=== PATIENT | female | born 1975 | race Caucasian/White ===

== ENCOUNTER 2017-09-15 17:37 | Emergency (ER) | payer SELFPAY ==
[2017-09-15 19:15] VITALS: BP 154/97; PULSE 71; RESP 18; TEMP 36.4; O2SAT 100; BMI 27.3
--- NOTE | 2017-09-15 19:37 | HMH.EDUTC ---
[facility] Disposition Clinical Impression: Influenza-like illness, Exposure to influenza Disposition: Home, Self-Care Condition on Discharge: Good Instructions: DI for Influenza -- Adult Additional Instructions: * Discussed risks, side effects, risk of allergic reaction, and possible benefits. We even discussed hallucinations and uncontrollable fevers. * Lots of rest * Increase fluids, water, gatorade, powerade, pedialyte if /toddler/child * Monitor Temp. Tylenol every 4 hours as needed no more then 5 times a day or 4000mg in 24 hours and/or ibuprofen every 6 hours as needed no more then 3200mg in 24 hours (as long as your primary care doctor has told you that it is ok to take both) for fever/aches/pain. ER if fever no less than 101 despite tylenol and Ibuprofen * OTC cold/flu/sinus medication is ok but pick one. Do not take multiple different ones as they have similar ingredients and you can overdose on cold medication. * You (or your child) are contagious until no fever, aches, chills x 24 hours without medication for symptoms. * * Per hospital policy, Your throat swab was sent for culture. Those results are typically sent to your primary care. Be sure to follow up in 2-3 days if no improvement so they can review those results and treat if necessary. If you don't have primary care, I recommend you get one but in the mean time, you will have to return to a walk in clinic. Referrals: Erik Hook MD [Primary Care Provider] - (IMMEDIATELY for new or worsening symptoms, improvement followed by suddenly feeling worse OR no noticeable improvement over the next 48-72 hours. 911 for difficulty breathing ) Forms: Work/School Release Time of Disposition: 19:50 Medical Decision Making Vital Signs: 09/15/17 19:15 Temperature 97.5 F L Temperature Source Temporal Artery Scan Pulse Rate [Right Radial] 71 Respiratory Rate 18 Blood Pressure [Right Arm] 154/97 Blood Pressure Mean [Right Arm] 116 Blood Pressure Source [Right Arm] Automatic Cuff Blood Pressure Position [Right Arm] Sitting 02 Sat by Pulse Oximetry 100 Oxygen Delivery Method Room Air - Lab Data Lab results reviewed: Yes: I reviewed the patient's lab results. Lab Results 09/15/17 19:12: Influenza Type A Ag Negative, Influenza Type B Ag Negative, Strep Scn Rapid Clinic Negative Orders (Tests/Meds): ORDERS Category Date Time Status Strep Screen Confirmation Stat Micro 09/15/17 19:12 Received - Teo Inquiry Pt receiving controlled substance: No [facility] HPI - General Stated complaint: sore throat,body pain Time Seen by Provider: 09/15/17 19:38 Mode of Arrival: Ambulatory Source of Information: Patient Limitations: No Limitations Description of Symptoms (Recalled from Triage Doc. by RN): C/O sore throat body aches HEENT Symptoms (Recalled from RN notes): Yes (C/O sore throat) Resp Symptoms (Recalled from RN notes): No Skin Symptoms (Recalled from RN notes): No MS Symptoms (Recalled from RN notes): Yes (c/o body aches) Functional Status (Recalled from RN notes): n/a - History of Present Illness Provider Complaint: c/o sore throat starting late yesterday that has progressed and now feeling feverish, aches, chills, nonprod cough, sore throat, rhinorrhea. Slowly worsening as day as progressed. Multiple contacts with flu within the last week. None in home. Hasn't taken or tried anything for symptoms. - Related Data Home Medications Medication Instructions Recorded Confirmed Butalb/Acetaminophen/Caffeine 1 each PO Q6HP PRN 09/15/17 09/15/17 [Fioricet 50-300-40 mg Capsule] Levothyroxine Sodium 50 mcg PO DAILY 09/15/17 09/15/17 [Levothyroxine 50mcg (0.05mg) Tab] Spironolactone [Spironolactone 25 mg PO DAILY 09/15/17 09/15/17 25mg Tab] buPROPion HCl [Wellbutrin 75mg 75 mg PO DAILY 09/15/17 09/15/17 Tablet] Allergies Allergy/AdvReac Type Severity Reaction Status Date / Time codeine [CODEINE] Allergy Unknown VOMITING, Verifi
[2017-09-15 19:49] LABS: UTC Influenza A Antigen Negative (Negative); UTC Influenza B Antigen Negative (Negative); UTC Strep Screen (Rapid) Negative (Negative)
--- NOTE | 2017-09-15 19:49 | ED_ITS ---
[facility] [place] Clinical Impression: Influenza-like illness, Exposure to influenza Disposition: Home, Self-Care Condition on Discharge: Good Instructions: DI for Influenza -- Adult Additional Instructions: * Discussed risks, side effects, risk of allergic reaction, and possible benefits. We even discussed hallucinations and uncontrollable fevers. * Lots of rest * Increase fluids, water, gatorade, powerade, pedialyte if /toddler/child * Monitor Temp. Tylenol every 4 hours as needed no more then 5 times a day or 4000mg in 24 hours and/or ibuprofen every 6 hours as needed no more then 3200mg in 24 hours (as long as your primary care doctor has told you that it is ok to take both) for fever/aches/pain. ER if fever no less than 101 despite tylenol and Ibuprofen * OTC cold/flu/sinus medication is ok but pick one. Do not take multiple different ones as they have similar ingredients and you can overdose on cold medication. * You (or your child) are contagious until no fever, aches, chills x 24 hours without medication for symptoms. * * Per hospital policy, Your throat swab was sent for culture. Those results are typically sent to your primary care. Be sure to follow up in 2-3 days if no improvement so they can review those results and treat if necessary. If you don' t have primary care, I recommend you get one but in the mean time, you will have to return to a walk in clinic. Referrals: Erik Hook MD [Primary Care Provider] - (IMMEDIATELY for new or worsening symptoms, improvement followed by suddenly feeling worse OR no noticeable improvement over the next 48-72 hours. 911 for difficulty breathing ) Forms: Work/School Release Time of Disposition: 19:50 Medical Decision Making Vital Signs: 09/15/17 19:15 Temperature 97.5 F L Temperature Source Temporal Artery Scan Pulse Rate [Right Radial] 71 Respiratory Rate 18 Blood Pressure [Right Arm] 154/97 Blood Pressure Mean [Right Arm] 116 Blood Pressure Source [Right Arm] Automatic Cuff Blood Pressure Position [Right Arm] Sitting 02 Sat by Pulse Oximetry 100 Oxygen Delivery Method Room Air - Lab Data Lab results reviewed: Yes: I reviewed the patient's lab results. Lab Results 09/15/17 19:12: Influenza Type A Ag Negative, Influenza Type B Ag Negative, Strep Scn Rapid Clinic Negative Orders (Tests/Meds): ORDERS Category Date Time Status Strep Screen Confirmation Stat Micro 09/15/17 19:12 Received - Teo Inquiry Pt receiving controlled substance: No [facility] [place] - General Stated complaint: sore throat,body pain Time Seen by Provider: 09/15/17 19:38 Mode of Arrival: Ambulatory Source of Information: Patient Limitations: No Limitations Description of Symptoms (Recalled from Triage Doc. by RN): C/O sore throat body aches HEENT Symptoms (Recalled from RN notes): Yes (C/O sore throat) Resp Symptoms (Recalled from RN notes): No Skin Symptoms (Recalled from RN notes): No MS Symptoms (Recalled from RN notes): Yes (c/o body aches) Functional Status (Recalled from RN notes): n/a - History of Present Illness Provider Complaint: c/o sore throat starting late yesterday that has progressed and now feeling feverish, aches, chills, nonprod cough, sore throat, rhinorrhea. Slowly worsening as day as progressed. Multiple contacts with flu within the last week. None in home. Hasn't taken or tried anything for symptoms. - Related Data Home Medications Medication
[2017-09-15 19:51] VITALS: BP 132/67; PULSE 78; RESP 20; TEMP 36.7; O2SAT 99
== END 2017-09-15 19:52 | disposition home or self-care (01) ==
PROVIDERS: Emergency Provider Nurse Practitioner Family; PCP Emergency Medicine
DX: J10.1 Influenza due to other identified influenza virus with other respiratory manifestations (principal); G43.009 Migraine without aura, not intractable, without status migrainosus; F41.8 Other specified anxiety disorders; E03.9 Hypothyroidism, unspecified; Z90.49 Acquired absence of other specified parts of digestive tract; Z88.6 Allergy status to analgesic agent; Z88.2 Allergy status to sulfonamides
CPT/HCPCS: 87804; 87880; 99202

== ENCOUNTER 2017-09-22 06:30 | Emergency (ER) | payer SELFPAY ==
[2017-09-22 06:33] VITALS: BP 108/72; PULSE 95; RESP 16; TEMP 36.5; O2SAT 97; BMI 27.3
--- NOTE | 2017-09-22 07:13 | HMH.EDGENADL ---
ED Disposition Clinical Impression: Migraine Qualifiers: Migraine type: unspecified Status migrainosus presence: without status migrainosus Intractability: not intractable Qualified Code(s): G43.909 - Migraine, unspecified, not intractable, without status migrainosus Disposition: Home, Self-Care Condition on Discharge: Good Instructions: DI for Migraine Additional Instructions: Please follow-up with PCP if not better, within the next 1-2 days. Referrals: Erik Hook MD [Primary Care Provider] - Forms: Work/School Release Time of Disposition: 08:00 - Critical Care Critical Care Time: No Attestation: On 09/22/17, the high probability of a clinically significant, sudden or life threatening deterioration of the following system(s) required my full and direct attention, intervention and personal management. The time I documented below is in addition to time spent performing reported procedures but includes the following listed in this critical care notation. Medical Decision Making - Medical Records Medical records reviewed: Yes: I reviewed the patient's medical records. Vital Signs: 09/22/17 06:33 09/22/17 08:18 Temperature 97.7 F 97.9 F Temperature Source Oral Oral Pulse Rate 78 Pulse Rate [Right Brachial] 95 H Respiratory Rate 16 20 Blood Pressure 111/67 Blood Pressure [Right Arm] 108/72 Blood Pressure Mean [Right Arm] 84 Blood Pressure Source [Right Arm] Automatic Cuff Blood Pressure Position [Right Arm] Supine 02 Sat by Pulse Oximetry 97 Oxygen Delivery Method Room Air Room Air - Lab Data Lab results reviewed: Yes: I reviewed the patient's lab results. Lab Results 09/22/17 07:05: WBC 5.6, RBC 4.56, Hgb 13.5, Hct 39.9, MCV 87.5, MCH 29.7, MCHC 34.0, RDW 12.0, Plt Count 179, MPV 8.3, Neut % (Auto) 49.8, Lymph % (Auto) 38.7, [place] % (Auto) 5.0, Eos % (Auto) 5.5, Baso % (Auto) 0.9, Neut # (Auto) 2.8, Lymph # (Auto) 2.2, [place] # (Auto) 0.3, Eos # (Auto) 0.3, Baso # (Auto) 0.1 09/22/17 07:05: Sodium 138, Potassium 4.0, Chloride 105, Carbon Dioxide 30, Anion Gap 7.0, BUN 17, Creatinine 0.89, Estimated Creat Clear 87, Estimated GFR 70, Est GFR ( Amer) 85, Glucose 101, Calcium 8.7, Total Bilirubin 0.2, AST 7 L, ALT 28, Alkaline Phosphatase 71, Total Protein 7.0, Albumin 3.5, Globulin 3.5 H, Albumin/Globulin Ratio 1.0 L Result diagrams: 09/22/17 07:05 09/22/17 07:05 Orders (Tests/Meds): ED MEDICATIONS Discontinued Medications Generic Name Dose Route Start Last Admin Trade Name Freq PRN Reason Stop Dose Admin Diphenhydramine HCl 25 mg 09/22/17 07:07 09/22/17 07:11 Benadryl 50mg/1ml Vial IV 09/22/17 07:08 25 mg ONCE ONE Administration Sodium Chloride 1,000 mls @ 999 mls/hr 09/22/17 07:15 Sod Chlor 0.9% 1000ml Bag IV 09/22/17 08:15 .Q1H1M CHRISTEN Ketorolac Tromethamine 30 mg 09/22/17 07:07 09/22/17 07:11 Toradol 30mg/Ml Vial IV 09/22/17 07:08 30 mg ONCE ONE Administration Ondansetron HCl 4 mg 09/22/17 07:07 09/22/17 07:11 Zofran 4mg/2ml Vial IV 09/22/17 07:08 4 mg ONCE ONE Administration - Teo Inquiry Pt receiving controlled substance: No - Reevaluation(s) Time: 08:00 Reevaluation #1: Upon re-valuation the patient is medically stable, improving, advised to follow up with PCP per discharge instructions, for additional testing and workup. General Adult HPI - General Chief complaint: PAIN Stated complaint: MIGRAINE Mode of Arrival: Family Vehicle Limitations: No Limitations Description of Symptoms (Recalled from ER Triage Doc. by RN): C/O MIGRAINE HEADACHE WITH NAUSEA SINCE 4 AM - History of Present Illness complaint: headache and nasuea Onset (ago): hour(s) (3 hrs ago) Location: head Radiation: non-radiation Severity: similar to prior episodes Severity scale (1-10): 8 Quality: stabbing Consistency: constant Relieving factors: cold therapy Exacerbating factors: movement Associated symptoms: denies othe
--- NOTE | 2017-09-22 07:16 | ED_ITS ---
ED Disposition Clinical Impression: Migraine Qualifiers: Migraine type: unspecified Status migrainosus presence: without status migrainosus Intractability: not intractable Qualified Code(s): G43.909 - Migraine, unspecified, not intractable, without status migrainosus Disposition: Home, Self-Care Condition on Discharge: Good Instructions: DI for Migraine Additional Instructions: Please follow-up with PCP if not better, within the next 1-2 days. Referrals: Erik Hook MD [Primary Care Provider] - Forms: Work/School Release Time of Disposition: 08:00 - Critical Care Critical Care Time: No Attestation: On 09/22/17, the high probability of a clinically significant, sudden or life threatening deterioration of the following system(s) required my full and direct attention, intervention and personal management. The time I documented below is in addition to time spent performing reported procedures but includes the following listed in this critical care notation. Medical Decision Making - Medical Records Medical records reviewed: Yes: I reviewed the patient's medical records. Vital Signs: 09/22/17 06:33 09/22/17 08:18 Temperature 97.7 F 97.9 F Temperature Source Oral Oral Pulse Rate 78 Pulse Rate [Right Brachial] 95 H Respiratory Rate 16 20 Blood Pressure 111/67 Blood Pressure [Right Arm] 108/72 Blood Pressure Mean [Right Arm] 84 Blood Pressure Source [Right Arm] Automatic Cuff Blood Pressure Position [Right Arm] Supine 02 Sat by Pulse Oximetry 97 Oxygen Delivery Method Room Air Room Air - Lab Data Lab results reviewed: Yes: I reviewed the patient's lab results. Lab Results 09/22/17 07:05: WBC 5.6, RBC 4.56, Hgb 13.5, Hct 39.9, MCV 87.5, MCH 29.7, MCHC 34.0, RDW 12.0, Plt Count 179, MPV 8.3, Neut % (Auto) 49.8, Lymph % (Auto) 38.7 , [place] % (Auto) 5.0, Eos % (Auto) 5.5, Baso % (Auto) 0.9, Neut # (Auto) 2.8, Lymph # (Auto) 2.2, [place] # (Auto) 0.3, Eos # (Auto) 0.3, Baso # (Auto) 0.1 09/22/17 07:05: Sodium 138, Potassium 4.0, Chloride 105, Carbon Dioxide 30, Anion Gap 7.0, BUN 17, Creatinine 0.89, Estimated Creat Clear 87, Estimated GFR 70, Est GFR ( Amer) 85, Glucose 101, Calcium 8.7, Total Bilirubin 0.2, AST 7 L, ALT 28, Alkaline Phosphatase 71, Total Protein 7.0, Albumin 3.5, Globulin 3.5 H, Albumin/Globulin Ratio 1.0 L Result diagrams: 09/22/17 07:05 09/22/17 07:05 Orders (Tests/Meds): ED MEDICATIONS Discontinued Medications Generic Name Dose Route Start Last Admin Trade Name Freq PRN Reason Stop Dose Admin Diphenhydramine HCl 25 mg 09/22/17 07:07 09/22/17 07:11 Benadryl 50mg/1ml Vial IV 09/22/17 07:08 25 mg ONCE ONE Administration Sodium Chloride 1,000 mls @ 999 mls/hr 09/22/17 07:15 Sod Chlor 0.9% 1000ml Bag IV 09/22/17 08:15 .Q1H1M CHRISTEN Ketorolac Tromethamine 30 mg 09/22/17 07:07 09/22/17 07:11 Toradol 30mg/Ml Vial IV 09/22/17 07:08 30 mg ONCE ONE Administration Ondansetron HCl 4 mg 09/22/17 07:07 09/22/17 07:11 Zofran 4mg/2ml Vial IV 09/22/17 07:08 4 mg ONCE ONE Administration - Teo Inquiry Pt receiving controlled substance: No - Reevaluation(s) Time: 08:00 Reevaluation #1: Upon re-valuation the patient is medically stable, improving, advised to follow up with PCP per discharge instructi
[2017-09-22 07:19] LABS: Basophils # 0.1 K/mm3 (0-0.2); Basophils % 0.9 % (0.1-2.0); Eosinophils # 0.3 K/mm3 (0.0-0.4); Eosinophils % 5.5 % (0.1-12.0); Hematocrit 39.9 % (37.0-47.0); Hemoglobin 13.5 g/dL (12.2-16.2); Lymphocytes # 2.2 K/mm3 (0.7-4.5); Lymphocytes % 38.7 K/mm3 (10-50); Mean Corpuscular Hemoglobin 29.7 pg (27.0-31.2); Mean Corpuscular Volume 87.5 fl (81-99); Mean Platelet Volume 8.3 fl (7.4-10.4); Monocytes # 0.3 K/mm3 (0.1-1.0); Neutrophils # 2.8 K/mm3 (1.8-7.8); Neutrophils % 49.8 % (37.0-80.0); Platelet Count 179 K/mm3 (142-424); Red Blood Count 4.56 M/mm3 (4.20-5.40); White Blood Count 5.6 K/mm3 (4.8-10.8)
[2017-09-22 07:29] LABS: Alanine Aminotransferase 28 U/L (12-78); Albumin Level 3.5 gm/dL (3.4-5.0); Alkaline Phosphatase 71 U/L (46-116); Aspartate Amino Transferase 7 U/L (15-37); Bilirubin,Total 0.2 mg/dL (0.2-1.0); Blood Urea Nitrogen 17 mg/dL (7-18); Calcium 8.7 mg/dL (8.5-10.1); Carbon Dioxide 30 mmol/L (21.0-32.0); Chloride 105 mmol/L (98-107); Creatinine Clearance Estimated 87 mL/min (0-300); Creatinine,Serum 0.89 mg/dL (0.55-1.02); Estimated Glomerular Filt Rate 70 ml/min (>60); GFR (African American) 85 ML/MIN (>60); Globulin 3.5 gm/dl (1.3-3.2); Glucose 101 mg/dL (74-106); Sodium 138 mmol/L (136-145)
[2017-09-22 08:18] VITALS: BP 111/67; PULSE 78; RESP 20; TEMP 36.6; O2SAT 100
== END 2017-09-22 08:19 | disposition home or self-care (01) ==
PROVIDERS: Emergency Provider Emergency Medicine; PCP Emergency Medicine
DX: G43.909 Migraine, unspecified, not intractable, without status migrainosus (principal); F41.8 Other specified anxiety disorders; Z88.2 Allergy status to sulfonamides; Z88.6 Allergy status to analgesic agent; Z88.8 Allergy status to other drugs, medicaments and biological substances
CPT/HCPCS: 80053; 85025; 90471; 96365; 96374; 96375; 99282; J2405

== ENCOUNTER → 2018-07-03 08:14 | Outpatient (CLI) | payer OTHER, SELFPAY ==
[2018-07-03 08:36] LABS: Basophils # 0.1 K/mm3 (0-0.2); Basophils % 1.2 % (0.1-2.0); Eosinophils # 0.2 K/mm3 (0.0-0.4); Eosinophils % 3.8 % (0.1-12.0); Hematocrit 42.3 % (37.0-47.0); Hemoglobin 13.9 g/dL (12.2-16.2); Lymphocytes # 1.6 K/mm3 (0.7-4.5); Lymphocytes % 30.8 % (10-50); Mean Corpuscular HGB Conc 32.8 g/dL (31.8-35.4); Mean Corpuscular Volume 91.5 fl (81-99); Monocytes # 0.3 K/mm3 (0.1-1.0); Monocytes % 4.7 % (1.7-9.3); Neutrophils # 3.2 K/mm3 (1.8-7.8); Neutrophils % 59.5 % (37.0-80.0); Platelet Count 210 K/mm3 (142-424); Red Blood Count 4.62 M/mm3 (4.20-5.40); Red Cell Distribution Width 12.7 % (11.5-17.5); White Blood Count 5.3 K/mm3 (4.8-10.8)
[2018-07-03 09:40] LABS: Alanine Aminotransferase 19 U/L (12-78); Albumin Level 3.7 gm/dL (3.4-5.0); Albumin/Globulin Ratio 1.1 (1.1-1.8); Alkaline Phosphatase 71 U/L (46-116); Anion Gap 12.3 mEq/L (5-15); Aspartate Amino Transferase 7 U/L (15-37); Bilirubin,Total 0.2 mg/dL (0.2-1.0); Blood Urea Nitrogen 15 mg/dL (7-18); Calcium 8.7 mg/dL (8.5-10.1); Carbon Dioxide 28 mmol/L (21.0-32.0); Chloride 105 mmol/L (98-107); Chol/HDL Ratio 2.2 (1-3.5); Cholesterol 184 mg/dL (140-200); Creatinine,Serum 0.82 mg/dL (0.55-1.02); Estimated Glomerular Filt Rate 77 ml/min (>60); Free T4 (Free Thyroxine) 1.02 ng/dl (0.76-1.46); GFR (African American) 93 ML/MIN (>60); Globulin 3.3 gm/dl (1.3-3.2); Glucose 97 mg/dL (74-106); HDL Cholesterol 84 mg/dL (29-89); LDL Cholesterol 91 mg/dL (0-130); Potassium 4.3 mmoL/L (3.5-5.1); Sodium 141 mmol/L (136-145); Thyroid Stimulating Hormone 1.69 uIU/ml (0.358-3.740); Triglycerides 43 mg/dL (30-200); VLDL Cholesterol 9 mg/dL (0-40)
[2018-07-06 09:34] LABS: FSH 67.5 mIU/mL (.); LH 64.1 mIU/mL (.)
== END ==
PROVIDERS: Visit Provider Emergency Medicine
DX: E03.9 Hypothyroidism, unspecified (principal); E66.9 Obesity, unspecified; Z79.890 Hormone replacement therapy
CPT/HCPCS: 36415; 80053; 80061; 83001; 83002; 84146; 84439; 84443; 85025

== ENCOUNTER → 2018-09-02 07:42 | Outpatient (CLI) | payer OTHER, SELFPAY ==
[2018-09-03 13:36] LABS: Vitamin D 25 Hydroxy 30.1 ng/mL (30.0-100.0)
== END ==
PROVIDERS: Visit Provider Emergency Medicine
DX: Z13.21 Encounter for screening for nutritional disorder (principal)
CPT/HCPCS: 36415; 82652

== ENCOUNTER 2018-10-22 17:30 | Outpatient (RCR) | payer OTHER, SELFPAY ==
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
== END 2018-10-22 17:35 | disposition home or self-care (01) ==
LOC: PT 17:30
PROVIDERS: Visit Provider Specialist
DX: G43.809 Other migraine, not intractable, without status migrainosus (principal)
CPT/HCPCS: 97010; 97012; 97014; 97110; 97140; 97163; G0283

== ENCOUNTER → 2018-11-13 10:25 | Outpatient (CLI) | payer OTHER, SELFPAY ==
--- NOTE | 2018-11-13 10:28 | US_ITS ---
US thyroid HISTORY: Follow-up thyroid nodules ITS.REASON: THYROID NODULE ORDERING PHYSICIAN: Javi Mao MD PATIENT AGE: 43 years Comparison: None FINDINGS: The right lobe is 4.7 x 1.8 x 2 cm. There is a multinodular appearance on the right with heterogeneous echogenicity. No change in the 2.4 x 1.4 cm nodule in the mid polar region on the right. The left lobe is 4.3 x 1.4 x 1.3 cm with heterogeneous echogenicity with a 1.1 cm nodule in the mid polar region unchanged. IMPRESSION: Overall no change in the heterogeneous echogenicity thyroid gland with multinodular involvement
== END ==
PROVIDERS: PCP Emergency Medicine; Visit Provider Otolaryngology
DX: E04.1 Nontoxic single thyroid nodule (principal)
CPT/HCPCS: 76536

== ENCOUNTER → 2018-11-16 07:24 | Outpatient (CLI) | payer OTHER, SELFPAY ==
[2018-11-16 09:06] LABS: Free T4 (Free Thyroxine) 1.07 ng/dl (0.76-1.46); Thyroid Stimulating Hormone 2.31 uIU/ml (0.358-3.740)
[2018-11-18 06:56] LABS: Thyroglobulin Level <1.0 IU/mL (0.0-0.9); Thyroid Peroxidase Antibodies 125 IU/mL (0-34)
== END ==
PROVIDERS: Visit Provider Otolaryngology
DX: E04.1 Nontoxic single thyroid nodule (principal)
CPT/HCPCS: 36415; 84439; 84443; 86376; 86800

== ENCOUNTER → 2019-05-11 14:53 | Outpatient (CLI) | payer OTHER, SELFPAY | PROVIDERS: Visit Provider Obstetrics & Gynecology | DX: R39.89 Other symptoms and signs involving the genitourinary system (principal) | CPT/HCPCS: 87086 ==

== ENCOUNTER → 2019-05-13 16:04 | Outpatient (CLI) | payer OTHER, SELFPAY ==
[2019-05-13 16:09] LABS: Microscopic, Urine URINE MICROSCOPIC (MICROSCOPIC)
[2019-05-13 16:33] LABS: Appearance,Urine CLEAR (Clear); Bilirubin,Urine Negative (Negative); Blood, Urine Negative (Negative); Color,Urine YELLOW (Yellow); Glucose,Urine (UA) Negative (Negative); Ketones,Urine Negative (Negative); Leukocyte Esterase,Urine Negative (Negative); Nitrate,Urine Negative (Negative); Protein,Urine Negative (Negative); Specific Gravity, Urine 1.015 (1.005-1.030); Urobilinogen,Urine 0.2 EU/dl (0.2)
[2019-05-13 17:07] LABS: Bacteria,Urine Trace /lpf; Squamous Epithelial Cell,Urine Occasional #/hpf (0-5); WBC,Urine Occasional #/hpf (0-3)
== END ==
PROVIDERS: Visit Provider Nurse Practitioner
DX: N39.0 Urinary tract infection, site not specified (principal)
CPT/HCPCS: 81001; 87086

== ENCOUNTER → 2019-07-06 10:58 | Outpatient (POV) | payer OTHER, SELFPAY | PROVIDERS: Visit Provider Dermatology | DX: Z00.00 Encounter for general adult medical examination without abnormal findings (principal) ==

== ENCOUNTER → 2019-07-13 10:50 | Outpatient (CLI) | payer OTHER, SELFPAY ==
--- NOTE | 2019-07-13 10:52 | MM_ITS ---
PROCEDURE: MM DIG SCREENING MAMM BI W/CAD CLINICAL INDICATION: Routine Screening Mammogram There is no personal or family history of breast cancer COMPARISON: None, this is baseline examination TECHNIQUE: Standard CC and MLO images were obtained. R2 CAD reviewed. FINDINGS: Moderate diffuse fibroglandular densities are seen in both breast and the findings of bilateral and symmetrical. There are scattered microcalcifications in each breast most of which have primarily a benign appearance. However there is a collection microcalcifications just deep to the nipple left breast which appear somewhat indeterminate. Recommend the patient return for spot compression magnification views for better evaluation. IMPRESSION: Moderate diffuse breast density with somewhat indeterminate microcalcifications left breast BI-RAD Category: 0 Need Additional Imaging Evaluation FOLLOW-UP: IMM Immediate Follow-up Recommended (A letter has been sent to the patient regarding results of the study.) Dictated by: Dr. Jeevan Ramirez MD 07/18/2019 12:[address] Jeevan Ramirez MD in [place] 07/18/2019 12:44
== END ==
PROVIDERS: PCP Emergency Medicine; Visit Provider Obstetrics & Gynecology
DX: Z12.31 Encounter for screening mammogram for malignant neoplasm of breast (principal)
CPT/HCPCS: 77067

== ENCOUNTER → 2019-08-16 13:02 | Outpatient (CLI) | payer OTHER, SELFPAY ==
--- NOTE | 2019-08-16 13:04 | US_ITS ---
PROCEDURE: US THYROID CLINICAL INDICATION: hypothyroid Follow-up thyroid nodules COMPARISON: THY US thyroid from 11/13/2018 FINDINGS: Right lobe: 4.5 x 1.7 x 1.8 cm. 2.1 x 0.7 cm nodule upper pole right thyroid gland heterogeneous in nature mostly hypoechoic solid-appearing. Hyperechoic nodule with calcification mid polar region at 4 mm unchanged, 9 mm hypoechoic solid-appearing nodule heterogeneous lower pole unchanged Left lobe: 3.8 x 1.3 x 1.2 cm. 11 x 6 mm hypoechoic nodule mid pole unchanged The thyroid gland has nodular contour bilaterally. Isthmus: Additional findings: IMPRESSION: Overall no change multinodular goiter Dictated by: Pedrito Oneill MD 08/17/2019 06:54 Electronically signed by Pedrito Oneill MD in [place] 08/17/2019 06:54
== END ==
PROVIDERS: PCP Emergency Medicine; Visit Provider Otolaryngology
DX: E01.0 Iodine-deficiency related diffuse (endemic) goiter (principal)
CPT/HCPCS: 76536

== ENCOUNTER → 2019-08-31 10:18 | Outpatient (CLI) | payer OTHER, SELFPAY ==
--- NOTE | 2019-08-31 10:18 | MR_ITS ---
PROCEDURE: MR HEAD/BRAIN WO/W CON CLINICAL INDICATION: temporal bones- r/o aciustic neuroma Headache, short-term memory loss, dizziness and blurred vision, right-sided tinnitus COMPARISON: BRW/O MRI-BRAIN W/O from 02/27/2017 TECHNIQUE: Routine multiplanar multi echo sequences are performed without and with gadolinium enhancement. FINDINGS: No midline shift, mass effect, intracranial hemorrhage, or hydrocephalus is evident. No acute infarction. The cerebellopontine angles, cerebellum, and brainstem have an unremarkable appearance. No evidence CP angle mass. There is a partial empty sella as a normal variant not significantly changed. Thin section images are obtained without and with contrast through the CP angle showing no CP angle mass or abnormal enhancement. No temporal bone mass evident. There is small amount fluid in the left mastoid sinus. Mucosal thickening is present in the right maxillary sinus inferiorly with a retention cyst in the medial wall the right maxillary sinus at 11 mm. IMPRESSION: 1. No acute intracranial findings. No evidence of cerebellopontine angle mass. 2. Partial empty sella. 3. Small amount of fluid in left mastoid sinus Dictated by: Pedrito Oneill MD 09/01/2019 09:10 Electronically signed by Pedrito Oneill MD in [place] 09/01/2019 09:10
--- NOTE | 2019-08-31 11:16 | HMH.ITSHM ---
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 []XANEX BUPROPION HCL ZYRTEC ESTRADIOL FLONASE SUNTHROID OMEPRAZOLE
== END ==
PROVIDERS: PCP Emergency Medicine; Visit Provider Otolaryngology
DX: R42 Dizziness and giddiness (principal); D33.3 Benign neoplasm of cranial nerves; H90.5 Unspecified sensorineural hearing loss; H93.11 Tinnitus, right ear
CPT/HCPCS: 70553; A9576

== ENCOUNTER → 2019-09-14 16:13 | Outpatient (CLI) | payer OTHER, SELFPAY ==
--- NOTE | 2019-09-14 16:14 | MM_ITS ---
PROCEDURE: MM DIG MAMM DX UNILAT LT CAD CLINICAL INDICATION: Dx Bilateral Mammogram Follow-up abnormal mammogram COMPARISON: MM DIG SCREENING MAMM BI W/CAD from 07/13/2019 TECHNIQUE: Spot compression Mag views of the left breast FINDINGS: Spot compression Mag views of the left breast confirm cluster of calcifications in the superior left breast near the retroareolar region. Most of these calcifications are somewhat smudgy on the CC view and appear to video player mechanic on the straight mL view consistent with milk of calcium. A few however do not video player mechanic therefore, follow-up is recommended. Probable secretory calcifications also noted. IMPRESSION: BI-RAD Category: 3 Probably Benign Finding Short Term Follow-up FOLLOW-UP: 6M 6Month Follow-up (A letter has been sent to the patient regarding results of the study.) Dictated by: Pedrito Oneill MD 09/18/2019 10:13 Electronically signed by Pedrito Oneill MD in [place] 09/18/2019 10:13
== END ==
PROVIDERS: PCP Emergency Medicine; Visit Provider Obstetrics & Gynecology
DX: R92.8 Other abnormal and inconclusive findings on diagnostic imaging of breast (principal)
CPT/HCPCS: 77061; 77065; G0279

== ENCOUNTER → 2019-10-04 08:18 | Outpatient (CLI) | payer OTHER, SELFPAY ==
[2019-10-04 10:23] LABS: Thyroid Stimulating Hormone 4.11 uIU/mL (0.465-4.68)
[2019-10-05 13:10] LABS: Folate 8.7 ng/mL (>3.0); Vitamin B12 528 pg/mL (232-1245)
== END ==
PROVIDERS: Visit Provider Specialist
DX: G43.919 Migraine, unspecified, intractable, without status migrainosus (principal); G89.29 Other chronic pain; M54.2 Cervicalgia; R41.3 Other amnesia; R51 Headache; E03.9 Hypothyroidism, unspecified; R53.83 Other fatigue
CPT/HCPCS: 36415; 82607; 82746; 84443

== ENCOUNTER → 2020-01-21 08:56 | Outpatient (CLI) | payer OTHER, SELFPAY ==
[2020-01-21 10:29] LABS: Coronavirus 19 IgG Antibody Negative (Negative); Coronavirus 19 IgM Antibody Negative (Negative)
== END ==
PROVIDERS: Visit Provider Emergency Medicine
DX: Z03.818 Encounter for observation for suspected exposure to other biological agents ruled out (principal)
CPT/HCPCS: 36415; 86328

== ENCOUNTER 2020-02-20 18:32 | Emergency (ER) | payer OTHER, SELFPAY ==
[2020-02-20 18:51] VITALS: BP 142/94; PULSE 99; RESP 18; TEMP 36.7; O2SAT 99; BMI 26.9
[2020-02-20 19:03] LABS: UTC Strep Screen (Rapid) Negative (Negative)
--- NOTE | 2020-02-20 19:18 | HMH.EDUTC ---
[facility] [place]ression: Sinusitis Qualifiers: Sinusitis location: unspecified location Chronicity: acute Recurrence: non-recurrent Qualified Code(s): J01.90 - Acute sinusitis, unspecified Disposition: Home, Self-Care Condition on Discharge: Good Instructions: Sinusitis, DI for Sinusitis, Preventing the Spread of Coronavirus Discharge Instructions Additional Instructions: Drink plenty of fluids. Take tylenol or ibuprofen for pain or fever. Take the medications as directed. Follow up with your regular doctor. GO TO THE ER FOR ANY WORSENING SYMPTOMS FOLLOW THE DIRECTIONS ON THE COVID-19 HAND OUT THAT WE GAVE YOU REGARDING SELF-ISOLATION UNTIL YOU KNOW YOUR COVID-19 RESULTS Prescriptions: Azithromycin [Z-Dante 250mg Tab*] 250 mg PO UD DOSE PK #6 tab Transmission Status: Received by [facility] Resident Research Referrals: Erik Hook MD [Primary Care Provider] - Forms: Work/School Release Time of Disposition: 19:23 Medical Decision Making - Medical Records Medical records reviewed: No: I reviewed the patient's medical records. - Teo Inquiry Pt receiving controlled substance: No Vital Signs: 02/20/20 18:51 02/20/20 19:25 Temperature 98.0 F 98.0 F Temperature Source Oral Pulse Rate 99 H Pulse Rate [Left Brachial] 99 H Respiratory Rate 18 18 Blood Pressure 142/94 H Blood Pressure [Left Arm] 142/94 H Blood Pressure Mean [Left Arm] 110 Blood Pressure Source [Left Arm] Automatic Cuff Blood Pressure Position [Left Arm] Sitting 02 Sat by Pulse Oximetry 99 Oxygen Delivery Method Room Air - Lab Data Lab results reviewed: Yes: I reviewed the patient's lab results. Lab Results 02/20/20 18:56: Strep Scn Rapid Clinic Negative Orders (Tests/Meds): ED MEDICATIONS Discontinued Medications Generic Name Dose Route Start Last Admin Trade Name Freq PRN Reason Stop Dose Admin Azithromycin 500 mg 02/20/20 19:20 02/20/20 19:24 Zithromax 250mg Tablet PO 02/20/20 19:21 500 mg ONCE ONE Administration Protocol ORDERS Category Date Time Status SARS-CoV-2, CORONA Stat Lab 02/20/20 19:15 Received Strep Screen Confirmation Stat Micro 02/20/20 18:56 [place] [facility] [place] - General Stated complaint: sore throat, cough Time Seen by Provider: 02/20/20 19:00 Mode of Arrival: Ambulatory Source of Information: Patient Limitations: No Limitations Description of Symptoms (Recalled from Triage Doc. by RN): PATIENT C/O SORE THROAT, BLISTERS ON TONGUE, AND PRODUCTIVE COUGH SINCE FRIDAY NIGHT. REPORTS THAT SHE IS ON DAY 2 OF STEROID PACK. DENIES FEVER OR ANY SICK CONTACTS HEENT Symptoms (Recalled from RN notes): Yes Resp Symptoms (Recalled from RN notes): Yes Skin Symptoms (Recalled from RN notes): No MS Symptoms (Recalled from RN notes): No Functional Status (Recalled from RN notes): WNL - History of Present Illness Provider Complaint: She c/o 2 days of worsening sore throat. She has also had a dry cough. - Related Data Home Medications Medication Instructions Recorded Confirmed omeprazole 20 mg capsule,delayed 20 mg PO 30 Days cap 09/14/18 10/05/19 release Previous Rx's Medication Instructions Recorded estradiol 2 mg tablet 2 mg PO DAILY #90 tab 04/23/19 ibuprofen 800 mg tablet 800 mg PO BID PRN #60 tab 09/09/19 erenumab-aooe 70 mg/mL 70 mg SQ QMONTH #1 each 09/20/19 subcutaneous auto-injector alprazolam 0.5 mg tablet 0.5 mg PO BID #60 tab 09/21/19 hydrocodone 5 mg-acetaminophen 325 1 tab PO BID PRN #20 tab 09/21/19 mg tablet ubrogepant 50 mg tablet 50 mg PO .COMPLEX #10 tab 10/05/19 cetirizine 10 mg tablet 10 mg PO DAILY #30 tab 11/30/19 Synthroid 50 mcg tablet See Rx Instructions .ROUTE 01/03/20 .COMPLEX #90 tab NS bupropion HCl 300 mg 24 hr tablet, See Rx Instructions .ROUTE 01/03/20 extended release .COMPLEX #90 tab fluticasone propionate 50 1 spray INTRANASAL DAILY #1 device 01/03/20 mcg/actuation nasal spray,suspensi
[2020-02-20 19:25] VITALS: BP 142/94; PULSE 99; RESP 18; TEMP 36.7; O2SAT 99
[2020-02-22 15:21] LABS: Covid-19 Nasal PCR Sendout Lex NOT DETECTED
== END 2020-02-20 19:30 | disposition home or self-care (01) ==
PROVIDERS: Emergency Provider Nurse Practitioner Family; PCP Emergency Medicine
DX: J01.90 Acute sinusitis, unspecified (principal); F41.8 Other specified anxiety disorders; G43.709 Chronic migraine without aura, not intractable, without status migrainosus; E03.9 Hypothyroidism, unspecified; Z90.49 Acquired absence of other specified parts of digestive tract; Z88.2 Allergy status to sulfonamides; Z88.5 Allergy status to narcotic agent; K21.9 Gastro-esophageal reflux disease without esophagitis; Z79.899 Other long term (current) drug therapy
CPT/HCPCS: 87880; 99202; U0004

== ENCOUNTER 2020-02-23 18:07 | Emergency (ER) | payer OTHER, SELFPAY ==
[2020-02-23 18:26] VITALS: RESP 16; TEMP 36.9; O2SAT 99; BMI 26.4
[2020-02-23 18:28] LABS: Microscopic, Urine URINE MICROSCOPIC (MICROSCOPIC)
[2020-02-23 18:38] LABS: Appearance,Urine CLEAR (Clear); Bilirubin,Urine Negative (Negative); Blood, Urine Negative (Negative); Color,Urine YELLOW (Yellow); Glucose,Urine (UA) Negative (Negative); Ketones,Urine Negative (Negative); Leukocyte Esterase,Urine Negative (Negative); Nitrate,Urine Negative (Negative); PH,Urine 5.5 (5.0-8.5); Protein,Urine Negative (Negative); Specific Gravity, Urine >= 1.030 (1.005-1.030); Urobilinogen,Urine 0.2 EU/dl (0.2)
[2020-02-23 18:46] LABS: Basophils # 0.1 K/mm3 (0-0.2); Basophils % 0.6 % (0.1-2.0); Eosinophils # 0.1 K/mm3 (0.0-0.4); Eosinophils % 1.2 % (0.1-12.0); Hematocrit 42.2 % (37.0-47.0); Hemoglobin 13.7 g/dL (12.2-16.2); Lymphocytes # 1.3 K/mm3 (0.7-4.5); Lymphocytes % 12.1 % (10-50); Mean Corpuscular HGB Conc 32.6 g/dL (31.8-35.4); Mean Corpuscular Hemoglobin 28.3 pg (27.0-31.2); Mean Corpuscular Volume 86.8 fl (81-99); Mean Platelet Volume 8.2 fl (7.4-10.4); Monocytes # 0.3 K/mm3 (0.1-1.0); Monocytes % 2.3 % (1.7-9.3); Neutrophils % 83.9 % (37.0-80.0); Platelet Count 222 K/mm3 (142-424); Red Blood Count 4.86 M/mm3 (4.20-5.40); Red Cell Distribution Width 13.7 % (11.5-17.5); White Blood Count 10.8 K/mm3 (4.8-10.8)
[2020-02-23 19:01] LABS: Chloride 101 mmol/L (98-107); Potassium 3.7 mmoL/L (3.5-5.1); Sodium 140 mmol/L (136-145)
[2020-02-23 19:03] LABS: Amylase 230 U/L (30-110); Blood Urea Nitrogen 18 mg/dl (7-17); Creatinine Clearance Estimated 73 mL/min (50-200); Estimated Glomerular Filt Rate 61 ml/min (>60); GFR (African American) 74 ML/MIN (>60)
[2020-02-23 19:04] LABS: Alanine Aminotransferase 17 U/L (12-78); Albumin Level 4.3 g/dl (3.5-5.0); Albumin/Globulin Ratio 1.4 (1.1-1.8); Alkaline Phosphatase 78 U/L (38-126); Anion Gap 13.7 mEq/L (5-15); Aspartate Amino Transferase 21 U/L (14-36); Bilirubin,Total 0.3 mg/dl (0.2-1.3); Calcium 9.1 mg/dl (8.4-10.2); Carbon Dioxide 29 mmol/L (22.0-30.0); Glucose 136 mg/dl (74-100); Lipase 483 U/L (23-300); Total Protein,Serum 7.3 g/dl (6.3-8.2)
[2020-02-23 19:15] LABS: Bacteria,Urine 2+ /lpf
--- NOTE | 2020-02-23 19:34 | CT_ITS ---
PROCEDURE: CT ABDOMEN PELVIS W CON CLINICAL INDICATION: abd pain with n/v/d Abdominal pain with nausea and vomiting COMPARISON: No exams were available for comparison TECHNIQUE: IV Contrast: 75ML OPTIRAY 350 Oral Contrast None Axial images obtained with sagittal and coronal reformats. All CT scans at the facility use one or more dose reduction, viz: automated exposure control, ma/kV adjustment per patient size (including targeted exams where dose is matched to indication, i.e. head), or iterative reconstruction technique. FINDINGS: LOWER THORAX: No acute finding ABDOMEN & PELVIS: There are scattered hypoattenuating slightly complex nodules in the liver measuring up to 1.2 cm. Some of these lesions appear to show some peripheral enhancement. These may be due to combination of the hemangiomas and cysts. Cannot exclude the possibility of metastatic disease. The spleen, adrenal glands, pancreas, has an unremarkable appearance. No renal or ureteral calculi. There is minimal prominence of both renal pelves. No intestinal obstruction or free air. There is mild diffuse thickening of the colon throughout suggesting colitis. No evidence of appendicitis or diverticulitis. The appendix is not clearly visualized. There are post hysterectomy changes. No pelvic mass or abnormal fluid collection. No acute bony anomaly. IMPRESSION: 1. Mild large bowel wall thickening which may represent nondistention versus mild diffuse colitis. 2. Multiple hypoattenuating lesions of the liver which may be due to combination of cysts and hemangiomas. Suggest follow-up CT without and with contrast with hemangioma protocol Dictated by: Pedrito Oneill MD 02/24/2020 09:35 Electronically signed by Pedrito Oneill MD in [place] 02/24/2020 09:35
[2020-02-23 20:00] VITALS: BP 130/84; PULSE 86; RESP 18; O2SAT 99
--- NOTE | 2020-02-23 20:15 | HMH.EDNVD ---
ED Disposition Clinical Impression: Gastroenteritis Pancreatitis, acute Qualifiers: Pancreatitis type: other Acute pancreatitis complication: no infection or necrosis Qualified Code(s): K85.80 - Other acute pancreatitis without necrosis or infection Disposition: Home, Self-Care Condition on Discharge: Good Instructions: DI for Diarrhea and Traveler's Diarrhea -- Adult Additional Instructions: fluids and see pcp for follow up Referrals: Erik Hook MD [Primary Care Provider] - - Critical Care Critical Care Time: No Attestation: On 02/23/20, the high probability of a clinically significant, sudden or life threatening deterioration of the following system(s) required my full and direct attention, intervention and personal management. The time I documented below is in addition to time spent performing reported procedures but includes the following listed in this critical care notation. Medical Decision Making - Medical Records Medical records reviewed: Yes: I reviewed the patient's medical records. - Teo Inquiry Pt receiving controlled substance: No Vital Signs: 02/23/20 18:26 02/23/20 20:00 Temperature 98.4 F Temperature Source Temporal Artery Scan Pulse Rate [Right Radial] 86 Respiratory Rate 16 18 Blood Pressure [Left Arm] 130/84 Blood Pressure Mean [Left Arm] 99 Blood Pressure Source [Left Arm] Automatic Cuff Blood Pressure Position [Left Arm] Supine 02 Sat by Pulse Oximetry 99 99 Oxygen Delivery Method Room Air Room Air - Lab Data Lab results reviewed: Yes: I reviewed the patient's lab results. Lab Results 02/23/20 18:16: Urine Color Yellow, Urine Appearance Clear, Urine pH 5.5, Ur Specific [place] >= 1.030, Urine Protein Negative, Urine Glucose (UA) Negative, Urine Ketones Negative, Urine Blood Negative, Urine Nitrate Negative, Urine Bilirubin Negative, Urine Urobilinogen 0.2, Ur Leukocyte Esterase Negative, Urine RBC None, Urine WBC 10-20, Ur Squamous Epith Cells 3-5, Urine Bacteria 2+ 02/23/20 18:39: WBC 10.8, RBC 4.86, Hgb 13.7, Hct 42.2, MCV 86.8, MCH 28.3, MCHC 32.6, RDW 13.7, Plt Count 222, MPV 8.2, Neut % (Auto) 83.9 H, Lymph % (Auto) 12.1, [place] % (Auto) 2.3, Eos % (Auto) 1.2, Baso % (Auto) 0.6, Neut # (Auto) 9.0 H, Lymph # (Auto) 1.3, [place] # (Auto) 0.3, Eos # (Auto) 0.1, Baso # (Auto) 0.1 02/23/20 18:39: Sodium 140, Potassium 3.7, Chloride 101, Carbon Dioxide 29, Anion Gap 13.7, BUN 18 H, Creatinine 1.00, Estimated Creat Clear 73, Estimated GFR 61, Est GFR ( Amer) 74, Glucose 136 H, Calcium 9.1, Total Bilirubin 0.3, AST 21, ALT 17, Alkaline Phosphatase 78, Total Protein 7.3, Albumin 4.3, Globulin 3.0, Albumin/Globulin Ratio 1.4, Amylase 230 H, Lipase 483 H Result diagrams: 02/23/20 18:39 02/23/20 18:39 Orders (Tests/Meds): ED MEDICATIONS Generic Name Dose Route Start Last Admin Trade Name Freq PRN Reason Stop Dose Admin Sodium Chloride 1,000 mls @ 999 mls/hr 02/23/20 18:45 02/23/20 18:38 Sod Chlor 0.9% 1000ml Bag IV 02/23/20 19:45 999 mls/hr .Q1H1M CHRISTEN Administration Sodium Chloride 1,000 mls @ 999 mls/hr 02/23/20 20:30 02/23/20 20:24 Sod Chlor 0.9% 1000ml Bag IV 02/23/20 21:30 999 mls/hr .Q1H1M CHRISTEN Administration Discontinued Medications Generic Name Dose Route Start Last Admin Trade Name Freq PRN Reason Stop Dose Admin Ioversol 75 ml 02/23/20 19:59 02/23/20 20:00 Rad-Optiray 350 100ml Vial IV 02/23/20 20:00 75 ml ONCE ONE Administration Protocol Ondansetron HCl 4 mg 02/23/20 18:33 02/23/20 18:39 Zofran 4mg/2ml Vial IV 02/23/20 18:34 4 mg ONCE ONE Administration Promethazine HCl 12.5 mg 02/23/20 20:20 02/23/20 20:24 Phenergan 25mg/Ml 1ml Vial IV 02/23/20 20:21 12.5 mg ONCE ONE Administration Sodium Chloride 10 ml 02/23/20 19:59 02/23/20 20:00 Rad-Saline Flush 10ml Syringe IV 02/23/20 20:00 10 ml ONCE ONE Administration Sodium Chloride 25 ml 02/23/20 20:20 02/23/20 20:24
[2020-02-23 20:30] VITALS: BP 124/80; PULSE 81; RESP 18; O2SAT 100
[2020-02-23 21:37] VITALS: BP 127/79; PULSE 83; RESP 16; TEMP 36.9; O2SAT 98
== END 2020-02-23 21:40 | disposition home or self-care (01) ==
PROVIDERS: Emergency Provider Emergency Medicine; PCP Emergency Medicine
DX: K85.80 Other acute pancreatitis without necrosis or infection (principal); K52.9 Noninfective gastroenteritis and colitis, unspecified; E03.9 Hypothyroidism, unspecified; F41.8 Other specified anxiety disorders; Z88.2 Allergy status to sulfonamides; Z88.5 Allergy status to narcotic agent; Z90.49 Acquired absence of other specified parts of digestive tract; Z90.79 Acquired absence of other genital organ(s); Z79.899 Other long term (current) drug therapy
CPT/HCPCS: 74177; 80053; 81001; 82150; 83690; 85025; 87086; 96365; 96366; 96375; 99284; J2405; Q9967

== ENCOUNTER → 2020-03-13 14:30 | Outpatient (CLI) | payer OTHER, SELFPAY ==
--- NOTE | 2020-03-13 14:31 | US_ITS ---
PROCEDURE: MM DIG MAMM DX UNILAT LT CAD Digital Breast Tomosynthesis Included CLINICAL INDICATION: abnormal mamm COMPARISON: MG MM DIG SCREENING MAMM BI W/CAD from 07/13/2019 MG MM DIG MAMM DX UNILAT LT CAD from 09/14/2019 US US BREAST LT COMPLETE from 03/13/2020 TECHNIQUE: Images performed of the left breast along with left breast ultrasound and Mag views FINDINGS: Left mammogram: Average to dense fibroglandular tissue. 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 A small cluster of calcifications noted in the inferior aspect of the left breast some of which appear to contain central lucencies and are not significantly changed. No suspicious appearing calcifications evident.. On the CC view the axillary tail is not imaged. Left breast ultrasound: 5 mm cyst at 1 o'clock. This may be associated with a calcification. No suspicious nodules evident. IMPRESSION: Probably benign findings which do not appear significantly changed. Recommend bilateral mammogram follow-up with inclusion of exaggerated CC views to include axillary tail in July 2020 to put patient back on schedule BI-RAD Category: 3 Probably Benign Finding Short Term Follow-up FOLLOW-UP: 4 month follow-up bilaterally to put patient back on schedule (A letter has been sent to the patient regarding results of the study.) Dictated by: Pedrito Oneill MD 03/17/2020 12:47 Pedrito Oneill MD in [place] 03/17/2020 12:47
== END ==
PROVIDERS: PCP Emergency Medicine; Visit Provider Obstetrics & Gynecology
DX: R92.8 Other abnormal and inconclusive findings on diagnostic imaging of breast (principal)
CPT/HCPCS: 76641; 77061; 77065; G0279

== ENCOUNTER 2020-04-05 12:26 | Emergency (ER) | payer OTHER, SELFPAY ==
[2020-04-05 12:28] VITALS: BP 128/80; PULSE 97; RESP 19; TEMP 36.5; O2SAT 99; BMI 26.5
[2020-04-05 13:04] VITALS: BP 116/69; PULSE 75; O2SAT 100
[2020-04-05 13:25] LABS: Basophils # 0.1 K/mm3 (0-0.2); Basophils % 1.1 % (0.1-2.0); Eosinophils # 0.2 K/mm3 (0.0-0.4); Eosinophils % 3.4 % (0.1-12.0); Hematocrit 40.5 % (37.0-47.0); Hemoglobin 13.8 g/dL (12.2-16.2); Lymphocytes # 1.6 K/mm3 (0.7-4.5); Lymphocytes % 25.2 % (10-50); Mean Corpuscular Hemoglobin 28.8 pg (27.0-31.2); Mean Corpuscular Volume 84.8 fl (81-99); Mean Platelet Volume 8.2 fl (7.4-10.4); Monocytes # 0.4 K/mm3 (0.1-1.0); Monocytes % 5.7 % (1.7-9.3); Neutrophils % 64.7 % (37.0-80.0); Platelet Count 230 K/mm3 (142-424); Red Blood Count 4.77 M/mm3 (4.20-5.40); Red Cell Distribution Width 13.2 % (11.5-17.5); White Blood Count 6.2 K/mm3 (4.8-10.8)
[2020-04-05 13:29] LABS: Amylase 103 U/L (30-110)
[2020-04-05 13:30] LABS: Alanine Aminotransferase 16 U/L (12-78); Albumin Level 4.5 g/dl (3.5-5.0); Albumin/Globulin Ratio 1.3 (1.1-1.8); Alkaline Phosphatase 100 U/L (38-126); Anion Gap 13.9 mEq/L (5-15); Aspartate Amino Transferase 41 U/L (14-36); Bilirubin,Total 0.5 mg/dl (0.2-1.3); Blood Urea Nitrogen 11 mg/dl (7-17); Calcium 9.7 mg/dl (8.4-10.2); Carbon Dioxide 30 mmol/L (22.0-30.0); Chloride 100 mmol/L (98-107); Creatinine Clearance Estimated 76 mL/min (50-200); Estimated Glomerular Filt Rate 61 ml/min (>60); GFR (African American) 74 ML/MIN (>60); Globulin 3.6 g/dL (1.3-3.2); Glucose 103 mg/dl (74-100); Lipase 67 U/L (23-300); Potassium 3.9 mmoL/L (3.5-5.1); Sodium 140 mmol/L (136-145); Total Protein,Serum 8.1 g/dl (6.3-8.2)
--- NOTE | 2020-04-05 13:52 | HMH.EDGENADL ---
ED Disposition Clinical Impression: Malaise, Atypical chest pain Headache Qualifiers: Headache type: unspecified Headache chronicity pattern: acute headache Intractability: intractable Qualified Code(s): R51 - Headache Disposition: Home, Self-Care Condition on Discharge: Good Instructions: DI for Atypical Chest Pain, DI for Headache Additional Instructions: Off work and quarantine yourself for 2 days until COVID-19 test results known. Call back to the emergency department in 2 days for COVID-19 test results. Rest, plenty of fluids, [id number] medications as needed for symptoms. Additional instructions for CHEST PAIN: See your physician as soon as possible for further evaluation. Return immediately if worsening chest pain, vomiting, shortness of breath, fever, coughing of blood. Additional instructions for HEADACHE: See your physician as soon as possible for further evaluation. Return immediately if worsening headache, vomiting, problems with vision or speech, fever, numbness or weakness of the extremities, neck pain or stiffness. Referrals: Erik Hook MD [Primary Care Provider] - Forms: Work/School Release - Critical Care Critical Care Time: No Attestation: On 04/05/20, the high probability of a clinically significant, sudden or life threatening deterioration of the following system(s) required my full and direct attention, intervention and personal management. The time I documented below is in addition to time spent performing reported procedures but includes the following listed in this critical care notation. Medical Decision Making - Medical Records Medical records reviewed: Yes: I reviewed the patient's medical records. - Teo Inquiry Pt receiving controlled substance: No Vital Signs: 04/05/20 12:28 04/05/20 13:04 04/05/20 14:06 Temperature 97.7 F Temperature Source Oral Pulse Rate Pulse Rate [Left Radial] 97 H 75 80 Respiratory Rate 19 Blood Pressure Blood Pressure [Right Arm] 128/80 116/69 183/73 H Blood Pressure Mean [Right Arm] 96 84 109 Blood Pressure Source Blood Pressure Source [Right Arm] Automatic Cuff Automatic Cuff Blood Pressure Position Blood Pressure Position [Right Arm] Sitting Sitting Supine 02 Sat by Pulse Oximetry 99 100 97 Oxygen Delivery Method Room Air Room Air Room Air 04/05/20 17:05 Temperature 98.1 F Temperature Source Oral Pulse Rate 76 Pulse Rate [Left Radial] Respiratory Rate 19 Blood Pressure 110/63 Blood Pressure [Right Arm] Blood Pressure Mean [Right Arm] Blood Pressure Source Automatic Cuff Blood Pressure Source [Right Arm] Blood Pressure Position Sitting Blood Pressure Position [Right Arm] 02 Sat by Pulse Oximetry Oxygen Delivery Method Room Air - Lab Data Lab results reviewed: Yes: I reviewed the patient's lab results. Lab Results 04/05/20 12:42: Amylase 103 04/05/20 12:42: SARS-CoV-2 IgG Ab (Rapid) Negative, SARS-CoV-2 IgM Ab (Rapid) Negative 04/05/20 12:42: Sodium 140, Potassium 3.9, Chloride 100, Carbon Dioxide 30, Anion Gap 13.9, BUN 11, Creatinine 1.00, Estimated Creat Clear 76, Estimated GFR 61, Est GFR ( Amer) 74, Glucose 103 H, Calcium 9.7, Total Bilirubin 0.5, AST 41 H, ALT 16, Alkaline Phosphatase 100, Total Protein 8.1, Albumin 4.5, Globulin 3.6 H, Albumin/Globulin Ratio 1.3 04/05/20 12:42: Lipase 67 04/05/20 12:42: WBC 6.2, RBC 4.77, Hgb 13.8, Hct 40.5, MCV 84.8, MCH 28.8, MCHC 34.0, RDW 13.2, Plt Count 230, MPV 8.2, Neut % (Auto) 64.7, Lymph % (Auto) 25.2, [place] % (Auto) 5.7, Eos % (Auto) 3.4, Baso % (Auto) 1.1, Neut # (Auto) 4.0, Lymph # (Auto) 1.6, [place] # (Auto) 0.4, Eos # (Auto) 0.2, Baso # (Auto) 0.1 04/05/20 12:42: Troponin I < 0.01 04/05/20 14:10: Urine Color Yellow, Urine Appearance Clear, Urine pH 6.5, Ur Specific [place] 1.010, Urine Protein Negative, Urine Glucose (UA) Negative, Urine Ketones 1+, Urine Blood Negative, Urine Nitrate Negative, Urine Bilirubin Negative, Urine U
--- NOTE | 2020-04-05 14:04 | XR_ITS ---
PROCEDURE: XR CHEST 2V CLINICAL HISTORY: chest pain Chest pain with vomiting and nausea COMPARISON: CR CXR1 CHEST-PORTABLE from 02/02/2017 FINDINGS: The cardiomediastinal silhouette and pulmonary vascularity are within normal limits. The lungs are clear without infiltrates, suspicious nodules, or pleural effusions. No acute bony abnormalities. IMPRESSION: No acute findings. Dictated by: Pedrito Oneill MD 04/05/2020 15:16 Pedrito Oneill MD in [place] 04/05/2020 15:16
[2020-04-05 14:06] VITALS: BP 183/73; PULSE 80; O2SAT 97
--- NOTE | 2020-04-05 14:25 | ECG_ITS ---
APPROVED REPORT Exam: Resting ECG HR:73 bpm ECG Measurements Heart Rate 73 AXES WV 114 P 63 QRSd 82 QRS 30 QT 366 T 22 QTc 403 <Conclusion> Normal sinus rhythm Septal infarct, age undetermined Abnormal ECG Electronically signed by : Zack Aguero, 04/07/2020 06:37:23
[2020-04-05 14:29] LABS: Appearance,Urine CLEAR (Clear); Bilirubin,Urine Negative (Negative); Blood, Urine Negative (Negative); Color,Urine YELLOW (Yellow); Glucose,Urine (UA) Negative (Negative); Ketones,Urine 1+ (Negative); Leukocyte Esterase,Urine Negative (Negative); Nitrate,Urine Negative (Negative); PH,Urine 6.5 (5.0-8.5); Protein,Urine Negative (Negative); Urobilinogen,Urine 0.2 EU/dl (0.2)
[2020-04-05 14:30] LABS: Microscopic, Urine URINE MICROSCOPIC (MICROSCOPIC)
[2020-04-05 14:37] LABS: Troponin I < 0.01 ng/ml (0.00-0.034)
[2020-04-05 14:39] LABS: WBC,Urine Occasional #/hpf (0-3)
--- NOTE | 2020-04-05 15:57 | PC.NURSE ---
Pt resting at this time.
[2020-04-05 16:05] LABS: Coronavirus 19 IgG Antibody Negative (Negative); Coronavirus 19 IgM Antibody Negative (Negative)
[2020-04-05 17:05] VITALS: BP 110/63; PULSE 76; RESP 19; TEMP 36.7; O2SAT 100
[2020-04-06 22:12] LABS: Covid-19 Nasal PCR Sendout Lex NOT DETECTED
== END 2020-04-05 17:10 | disposition home or self-care (01) ==
PROVIDERS: Emergency Provider Emergency Medicine; PCP Emergency Medicine
DX: R07.89 Other chest pain (principal); R53.83 Other fatigue; Z20.828 Contact with and (suspected) exposure to other viral communicable diseases; G43.709 Chronic migraine without aura, not intractable, without status migrainosus; F41.8 Other specified anxiety disorders; K21.9 Gastro-esophageal reflux disease without esophagitis; E03.9 Hypothyroidism, unspecified; Z88.2 Allergy status to sulfonamides; Z88.5 Allergy status to narcotic agent; Z90.49 Acquired absence of other specified parts of digestive tract; Z90.710 Acquired absence of both cervix and uterus; Z79.899 Other long term (current) drug therapy
CPT/HCPCS: 71046; 80053; 81001; 82150; 83690; 84484; 85025; 86328; 93005; 96365; 96367; 99284; U0004

== ENCOUNTER → 2020-06-07 15:06 | Outpatient (CLI) | payer OTHER, SELFPAY ==
[2020-06-10 07:06] LABS: Covid-19 Nasal PCR Sendout Lex Not Detected
== END ==
PROVIDERS: PCP Emergency Medicine; Visit Provider Nurse Practitioner Family
DX: Z03.818 Encounter for observation for suspected exposure to other biological agents ruled out (principal)
CPT/HCPCS: U0004

== ENCOUNTER → 2020-06-10 11:30 | Outpatient (CLI) | payer OTHER, SELFPAY ==
[2020-06-10 11:48] VITALS: BP 114/87; PULSE 83; RESP 16; TEMP 36.8; O2SAT 99; BMI 25.6
[2020-06-10 14:16] LABS: Coronavirus 19 IgG Antibody Negative (Negative); Coronavirus 19 IgM Antibody Negative (Negative)
--- NOTE | 2020-06-10 16:05 | PC.NURSE ---
PATIENT NOTIFIED OF NEGATIVE COVID RESULTS
--- NOTE | 2020-06-10 16:09 | PC.NURSE ---
This patient was never seen in the [facility]. She had Outpatient orders and just needed the lab.
== END ==
PROVIDERS: PCP Nurse Practitioner Family; Visit Provider Physician Assistant
DX: Z03.818 Encounter for observation for suspected exposure to other biological agents ruled out (principal)
CPT/HCPCS: 86328; U0003

== ENCOUNTER 2020-08-20 14:34 | Emergency (ER) | payer OTHER, SELFPAY ==
[2020-08-20 14:40] VITALS: BP 115/83; PULSE 92; RESP 14; TEMP 36.4; O2SAT 99; BMI 28.3
--- NOTE | 2020-08-20 15:09 | HMH.EDUTC ---
[facility] [place] Clinical Impression: Viral syndrome, Exposure to COVID-19 virus Sinusitis Qualifiers: Sinusitis location: unspecified location Chronicity: acute Recurrence: non-recurrent Qualified Code(s): J01.90 - Acute sinusitis, unspecified Disposition: Home, Self-Care Condition on Discharge: Good Instructions: DI for Sinusitis, DI for COVID-19 (Suspected or Confirmed ), Preventing the Spread of Coronavirus Discharge Instructions Additional Instructions: Drink plenty of fluids. Take tylenol for pain or fever. Return if you begin to have difficulty breathing. Follow up with your regular doctor. GO TO THE ER FOR ANY WORSENING SYMPTOMS Prescriptions: Ondansetron [Zofran 4mg ODT] 4 mg PO Q8HP PRN #12 tab.rapdis PRN Reason: Nausea Transmission Status: Received by [email or web address] # Azithromycin [Z-Dante 250mg Tab*] 250 mg PO UD DOSE PK #6 tab Transmission Status: Received by [email or web address] # Referrals: Erik Hook MD [Primary Care Provider] - Time of Disposition: 15:17 Medical Decision Making - Medical Records Medical records reviewed: No: I reviewed the patient's medical records. - Teo Inquiry Pt receiving controlled substance: No Vital Signs: 08/20/20 14:40 08/20/20 15:19 Temperature 97.6 F 97.6 F Temperature Source Oral Pulse Rate 92 H Pulse Rate [Right Brachial] 92 H Respiratory Rate 14 14 Blood Pressure 115/83 Blood Pressure [Right Arm] 115/83 Blood Pressure Mean [Right Arm] 93 Blood Pressure Source [Right Arm] Automatic Cuff Blood Pressure Position [Right Arm] Sitting 02 Sat by Pulse Oximetry 99 Oxygen Delivery Method Room Air Orders (Tests/Meds): ORDERS Category Date Time Status Covid-19 Nasal PCR ([facility]) Routine Lab 08/20/20 14:50 Received [facility] [place] HPI - General Stated complaint: nausea,headache,weakness Time Seen by Provider: 08/20/20 15:09 Mode of Arrival: Ambulatory Source of Information: Patient Limitations: No Limitations Description of Symptoms (Recalled from Triage Doc. by RN): PATIENT C/O WEAKNESS, HEADACHE, AND NAUSEA SINCE LAST NIGHT HEENT Symptoms (Recalled from RN notes): Yes Resp Symptoms (Recalled from RN notes): No Skin Symptoms (Recalled from RN notes): No MS Symptoms (Recalled from RN notes): No Functional Status (Recalled from RN notes): WNL - History of Present Illness Provider Complaint: She states that she has felt bad since yesterday. She has sinus congestion, cough, malaise and body aches. She has had her first Covid-19 vaccine shot around 2 weeks ago. 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 - Related Data Home Medications Medication Instructions Recorded Confirmed omeprazole 20 mg capsule,delayed 20 mg PO DAILY 30 Days cap 09/14/18 07/07/20 release ALPRAZolam [Xanax 0.5mg tab] 0.5 mg PO BID 02/23/20 07/07/20 Fluticasone Propionate 1 spray INTRANASAL DAILY 02/23/20 07/07/20 Previous Rx's Medication Instructions Recorded hydrocodone 5 mg-acetaminophen 325 1 tab PO BID PRN #20 tab 09/21/19 mg tablet erenumab-aooe 140 mg/mL 140 mg SQ QMONTH #1 ml MDD 140 mg 03/09/20 subcutaneous auto-injector ibuprofen 800 mg tablet 800 mg PO BID PRN #60 tab 03/09/20 ubrogepant 100 mg tablet 100 mg PO ONCE #10 tab MDD 200 mg 03/09/20 Synthroid 50 mcg tablet 50 mcg PO DAILY #90 tab NS 03/24/20 spironolactone 50 mg tablet See Rx Instructions .ROUTE 04/14/20 .COMPLEX #90 tab bupropion HCl 150 mg 24 hr tablet, 150 mg PO DAILY #30 tab 04/21/20 extended release bupropion HCl 300 mg 24 hr tablet, 300 mg PO DAILY #30 tab 04/21/20 extended release cetirizine 10 mg tablet 10 mg PO DAILY #90 tab 06/01/20 estradiol 2 mg tablet 2 mg PO DAILY #90 tab 06/16/20 prednisone 20 mg tablet 20 mg PO BID 5 Days #10 tab 07/06/20 cyclobenzaprine 10 mg tablet 10 mg PO TID PRN #30 tab 07/07/20 Azithromycin [Z-Dante 250mg Tab*] 250 mg PO UD DOSE PK #6 tab 08/20/20 Ondansetron [Zofran 4mg ODT] 4 mg PO Q8HP PRN
[2020-08-20 15:19] VITALS: BP 115/83; PULSE 92; RESP 14; TEMP 36.4; O2SAT 99
== END 2020-08-20 15:22 | disposition home or self-care (01) ==
PROVIDERS: Emergency Provider Nurse Practitioner Family; PCP Emergency Medicine
DX: Z20.822 Contact with and (suspected) exposure to COVID-19 (principal); B34.9 Viral infection, unspecified; F41.8 Other specified anxiety disorders; K21.9 Gastro-esophageal reflux disease without esophagitis; G43.709 Chronic migraine without aura, not intractable, without status migrainosus; E03.9 Hypothyroidism, unspecified; Z88.2 Allergy status to sulfonamides; Z88.5 Allergy status to narcotic agent; Z79.899 Other long term (current) drug therapy
CPT/HCPCS: 99202; G0463; U0003

== ENCOUNTER → 2020-09-25 13:52 | Outpatient (CLI) | payer OTHER, SELFPAY ==
[2020-09-25 15:28] LABS: Basophils # 0.1 K/mm3 (0-0.2); Basophils % 1.1 % (0.1-2.0); Eosinophils # 0.2 K/mm3 (0.0-0.4); Eosinophils % 3.6 % (0.1-12.0); Hematocrit 43.7 % (37.0-47.0); Hemoglobin 14.3 g/dL (12.2-16.2); Lymphocytes # 1.7 K/mm3 (0.7-4.5); Lymphocytes % 31.9 % (10-50); Mean Corpuscular HGB Conc 32.7 g/dL (31.8-35.4); Mean Corpuscular Hemoglobin 28.7 pg (27.0-31.2); Mean Corpuscular Volume 87.9 fl (81-99); Mean Platelet Volume 8.8 fl (7.4-10.4); Monocytes # 0.3 K/mm3 (0.1-1.0); Monocytes % 4.7 % (1.7-9.3); Neutrophils # 3.1 K/mm3 (1.8-7.8); Neutrophils % 58.7 % (37.0-80.0); Platelet Count 240 K/mm3 (142-424); Red Blood Count 4.97 M/mm3 (4.20-5.40); Red Cell Distribution Width 13.1 % (11.5-17.5); White Blood Count 5.3 K/mm3 (4.8-10.8)
[2020-09-25 18:00] LABS: Chloride 103 mmol/L (98-107)
[2020-09-25 18:01] LABS: Potassium 4.5 mmoL/L (3.5-5.1); Sodium 139 mmol/L (136-145)
[2020-09-25 18:03] LABS: Alanine Aminotransferase 13 U/L (12-78); Albumin Level 4.5 g/dl (3.5-5.0); Alkaline Phosphatase 76 U/L (38-126); Anion Gap 10.5 mEq/L (5-15); Aspartate Amino Transferase 20 U/L (14-36); Bilirubin,Total 0.5 mg/dl (0.2-1.3); Blood Urea Nitrogen 18 mg/dl (7-17); Carbon Dioxide 30 mmol/L (22.0-30.0); Cholesterol 218 mg/dl (140-200); Estimated Glomerular Filt Rate 61 ml/min (>60); GFR (African American) 73 ML/MIN (>60); Total Protein,Serum 7.7 g/dl (6.3-8.2); Triglycerides 82 mg/dl (30-150); VLDL Cholesterol 16 mg/dL (0-40)
[2020-09-25 18:04] LABS: Albumin/Globulin Ratio 1.4 (1.1-1.8); Calcium 9.7 mg/dl (8.4-10.2); Chol/HDL Ratio 2.7 (1-3.5); Globulin 3.2 g/dL (1.3-3.2); Glucose 88 mg/dl (74-100); HDL Cholesterol 80 mg/dl (40-60)
[2020-09-25 18:18] LABS: Direct LDL Cholesterol 104.64 mg/dL (100-129)
[2020-09-25 18:22] LABS: Free T4 (Free Thyroxine) 1.04 ng/dl (0.78-2.19)
[2020-09-25 18:37] LABS: Thyroid Stimulating Hormone 2.27 uIU/mL (0.465-4.68)
== END ==
PROVIDERS: Visit Provider Physician Assistant
DX: E06.3 Autoimmune thyroiditis (principal); M54.9 Dorsalgia, unspecified; M54.5 Low back pain; Z68.26 Body mass index [BMI] 26.0-26.9, adult; Z79.899 Other long term (current) drug therapy
CPT/HCPCS: 80053; 80061; 82306; 84439; 84443; 85025

== ENCOUNTER → 2020-09-26 16:29 | Outpatient (CLI) | payer OTHER, SELFPAY ==
--- NOTE | 2020-09-26 16:30 | MR_ITS ---
PROCEDURE: MR LUMBAR SPINE WO CON CLINICAL INDICATION: LBP with numbness RLE Lbp with rt hip pain, leg pain, numbness, and tingling. Symptoms x2days. No injury. Prior x-ray 03/11/16 COMPARISON: CR LS5 LUMBAR SPINE 5 VIEWS from 03/11/2016 TECHNIQUE: Standard multiplanar multiecho sequences are performed without contrast. 3-D MIP and myelographic images are also rendered and reviewed FINDINGS: There is normal alignment. The spinal cord ends at the L1 level. Incidental lipoma/hemangioma of L1 L1-L2: Unremarkable. L2-L3: Unremarkable. L3-L4: Unremarkable. L4-5: Mild disc desiccation with bulging disc and a small broad-based central disc protrusion causing mild bilateral lateral recess narrowing L5-S1: Mild degenerative disc disease with bulging disc with a small annular fissure. No extruded herniated disc or canal stenosis. IMPRESSION: 1. L4-5: Mild disc desiccation with bulging disc and a small broad-based central disc protrusion causing mild bilateral lateral recess narrowing 2. L5-S1: Mild degenerative disc disease with bulging disc with a small annular fissure. 3. No extruded herniated disc or canal stenosis. Dictated by: Pedrito Oneill MD 09/28/2020 10:00 Pedrito Oneill MD in [place] 09/28/2020 10:00
== END ==
PROVIDERS: PCP Emergency Medicine; Visit Provider Physician Assistant
DX: M54.5 Low back pain (principal)
CPT/HCPCS: 72148; 76376

== ENCOUNTER → 2020-10-09 13:56 | Outpatient (CLI) | payer OTHER, SELFPAY ==
--- NOTE | 2020-10-09 13:56 | XR_ITS ---
PROCEDURE: XR DEXA AXIAL SKELETON CLINICAL HISTORY: s/p hysterectomy, menopausal COMPARISON: No exams were available for comparison FINDINGS: The right hip BMD is 0.592 with a T-score of -2.3. The left hip BMD is 0.649 with a T-score of -1.8. The lumbar spine BMD is 1.070 with a T-score of 0.2. IMPRESSION: This patient is considered osteopenic according to the World Health Organization criteria. Bone density is between 10 and 25 percent below young normal. Fracture risk is moderate. Treatment is advised. Based on these results a follow-up exam is recommended in 2 year. Dictated by: Pedrito Oneill MD 10/09/2020 19:26 Pedrito Oneill MD in [place] 10/10/2020 13:29
== END ==
PROVIDERS: PCP Emergency Medicine; Visit Provider Physician Assistant
DX: Z78.0 Asymptomatic menopausal state (principal); Z90.710 Acquired absence of both cervix and uterus; M85.89 Other specified disorders of bone density and structure, multiple sites; Z13.820 Encounter for screening for osteoporosis
CPT/HCPCS: 77080

== ENCOUNTER → 2020-11-24 06:59 | Outpatient (CLI) | payer OTHER, SELFPAY ==
[2020-11-24 07:37] LABS: Basophils # 0.1 K/mm3 (0-0.2); Basophils % 0.7 % (0.1-2.0); Eosinophils # 0.2 K/mm3 (0.0-0.4); Eosinophils % 2.8 % (0.1-12.0); Hematocrit 40.7 % (37.0-47.0); Hemoglobin 13.2 g/dL (12.2-16.2); Lymphocytes # 2.4 K/mm3 (0.7-4.5); Lymphocytes % 34.4 % (10-50); Mean Corpuscular HGB Conc 32.3 g/dL (31.8-35.4); Mean Corpuscular Hemoglobin 28.7 pg (27.0-31.2); Mean Platelet Volume 7.9 fl (7.4-10.4); Monocytes # 0.3 K/mm3 (0.1-1.0); Neutrophils # 3.9 K/mm3 (1.8-7.8); Platelet Count 223 K/mm3 (142-424); Red Blood Count 4.58 M/mm3 (4.20-5.40); Red Cell Distribution Width 13.3 % (11.5-17.5); White Blood Count 6.9 K/mm3 (4.8-10.8)
[2020-11-24 08:49] LABS: Alanine Aminotransferase 13 U/L (12-78); Albumin Level 4.1 g/dl (3.5-5.0); Albumin/Globulin Ratio 1.6 (1.1-1.8); Alkaline Phosphatase 80 U/L (38-126); Anion Gap 12.3 mEq/L (5-15); Aspartate Amino Transferase 19 U/L (14-36); Bilirubin,Total 0.3 mg/dl (0.2-1.3); Blood Urea Nitrogen 18 mg/dl (7-17); Calcium 9.2 mg/dl (8.4-10.2); Carbon Dioxide 27 mmol/L (22.0-30.0); Chloride 104 mmol/L (98-107); Chol/HDL Ratio 2.1 (1-3.5); Cholesterol 171 mg/dl (140-200); Estimated Glomerular Filt Rate 68 ml/min (>60); GFR (African American) 83 ML/MIN (>60); Globulin 2.5 g/dL (1.3-3.2); Glucose 87 mg/dl (74-100); HDL Cholesterol 80 mg/dl (40-60); Potassium 4.3 mmoL/L (3.5-5.1); Sodium 139 mmol/L (136-145); Total Protein,Serum 6.6 g/dl (6.3-8.2); Triglycerides 52 mg/dl (30-150); VLDL Cholesterol 10 mg/dL (0-40)
[2020-11-24 09:01] LABS: C-Reactive Protein 3.3 mg/L (0-4); Direct LDL Cholesterol 73.64 mg/dL (100-129)
[2020-11-24 09:06] LABS: T4 (Thyroxine) 11.2 ug/dl (5.53-11.0)
[2020-11-24 09:20] LABS: Thyroid Stimulating Hormone 3.57 uIU/mL (0.465-4.68)
[2020-11-24 09:38] LABS: Vitamin B12 420 pg/mL (239-931)
[2020-11-24 10:09] LABS: Erythrocyte Sedimentation Rate 16 mm/hr (0-20)
== END ==
PROVIDERS: Visit Provider Physician Assistant
DX: R53.1 Weakness (principal); Z79.899 Other long term (current) drug therapy
CPT/HCPCS: 36415; 80053; 80061; 82607; 84436; 84443; 85025; 85651; 86140

== ENCOUNTER → 2020-12-14 09:36 | Outpatient (CLI) | payer OTHER, SELFPAY ==
[2020-12-14 11:13] LABS: 25-OH Vitamin D, Total 49.6 ng/mL (30-100)
[2020-12-14 11:32] LABS: Ferritin 9.91 ng/ml (6.24-137)
== END ==
PROVIDERS: Physician Assistant; Visit Provider Specialist
DX: E83.10 Disorder of iron metabolism, unspecified (principal); E55.9 Vitamin D deficiency, unspecified
CPT/HCPCS: 36415; 82306; 82728

== ENCOUNTER 2020-12-22 13:00 | Outpatient (CLI) | payer OTHER, SELFPAY ==
[2020-12-22 11:40] VITALS: BP 112/74; PULSE 89; RESP 20; TEMP 36.9; O2SAT 98
== END 2020-12-22 13:15 | disposition home or self-care (01) ==
LOC: INF 14:44
PROVIDERS: Visit Provider Physician Assistant
DX: M85.89 Other specified disorders of bone density and structure, multiple sites (principal)
CPT/HCPCS: 96372; J0897

== ENCOUNTER → 2020-12-26 14:21 | Outpatient (POV) | payer OTHER, SELFPAY | PROVIDERS: Visit Provider Dermatology | DX: Z00.00 Encounter for general adult medical examination without abnormal findings (principal) ==

== ENCOUNTER → 2020-12-29 12:31 | Outpatient (CLI) | payer OTHER, SELFPAY ==
[2020-12-29 16:53] LABS: Anion Gap 11.4 mEq/L (5-15); Blood Urea Nitrogen 13 mg/dl (7-17); Calcium 9.1 mg/dl (8.4-10.2); Carbon Dioxide 29 mmol/L (22.0-30.0); Chloride 101 mmol/L (98-107); Estimated Glomerular Filt Rate 61 ml/min (>60); GFR (African American) 73 ML/MIN (>60); Glucose 91 mg/dl (74-100); Magnesium 1.8 mg/dl (1.6-2.3); Potassium 4.4 mmoL/L (3.5-5.1); Sodium 137 mmol/L (136-145)
== END ==
PROVIDERS: Visit Provider Physician Assistant
DX: R53.83 Other fatigue (principal)
CPT/HCPCS: 80048; 83735

== ENCOUNTER → 2021-01-15 13:29 | Outpatient (POV) | payer OTHER, SELFPAY | PROVIDERS: Visit Provider Nurse Practitioner Family | DX: Z00.00 Encounter for general adult medical examination without abnormal findings (principal) ==

== ENCOUNTER 2021-02-27 07:45 | Emergency (ER) | payer OTHER, SELFPAY ==
[2021-02-27 07:45] VITALS: BP 136/82; PULSE 91; RESP 16; TEMP 36.5; O2SAT 98; BMI 28.3
--- NOTE | 2021-02-27 08:05 | HMH.EDHA ---
ED Disposition Clinical Impression: Migraine Qualifiers: Migraine type: with aura Status migrainosus presence: without status migrainosus Intractability: intractable Qualified Code(s): G43.119 - Migraine with aura, intractable, without status migrainosus Disposition: Home, Self-Care Condition on Discharge: Good Instructions: DI for Migraine Additional Instructions: With your prescription medication for ongoing mild headache symptoms. Please return to the ED for any new or worsening symptoms including weakness in extremity, inability to walk, or persistent vomiting. Referrals: Erik Hook MD [Primary Care Provider] - - Critical Care Critical Care Time: No Attestation: On 02/27/21, the high probability of a clinically significant, sudden or life threatening deterioration of the following system(s) required my full and direct attention, intervention and personal management. The time I documented below is in addition to time spent performing reported procedures but includes the following listed in this critical care notation. Medical Decision Making - Medical Records Medical records reviewed: Yes: I reviewed the patient's medical records. - Eto Inquiry Pt receiving controlled substance: No Vital Signs: 02/27/21 07:45 02/27/21 09:12 Temperature 97.7 F Temperature Source Oral Pulse Rate 85 Pulse Rate [Radial] 91 H Respiratory Rate 16 16 Blood Pressure 118/79 Blood Pressure [Right Arm] 136/82 Blood Pressure Mean [Right Arm] 100 Blood Pressure Position Sitting Blood Pressure Position [Right Arm] Sitting 02 Sat by Pulse Oximetry 98 98 Oxygen Delivery Method Room Air Room Air Orders (Tests/Meds): ED MEDICATIONS Discontinued Medications Generic Name Dose Route Start Last Admin Trade Name Julio Cesar PRN Reason Stop Dose Admin Acetaminophen 1,000 mg 02/27/21 09:14 02/27/21 09:21 Acetaminophen 500mg Tab PO 02/27/21 09:15 1,000 mg ONCE ONE Administration Dexamethasone Sodium Phosphate 10 mg 02/27/21 08:12 02/27/21 08:24 Dexamethasone 4mg/Ml 5ml Mdv IV 02/27/21 08:13 10 mg ONCE ONE Administration Diphenhydramine HCl 25 mg 02/27/21 08:11 02/27/21 08:24 Diphenhydramine 50mg/Ml Vial IV 02/27/21 08:12 25 mg ONCE ONE Administration Sodium Chloride 1,000 mls @ 999 mls/hr 02/27/21 08:15 02/27/21 08:25 Sod Chlor 0.9% 1000ml Bag IV 02/27/21 09:15 999 mls/hr .Q1H1M CHRISTEN Administration Magnesium Sulfate 2 gm/ Sodium 104 mls @ 100 mls/hr 02/27/21 09:14 02/27/21 09:21 Chloride IV 02/27/21 10:16 100 mls/hr ONCE ONE Administration Ketorolac Tromethamine 30 mg 02/27/21 08:11 02/27/21 08:24 Ketorolac 30mg/Ml Vial IV 02/27/21 08:12 30 mg ONCE ONE Administration Promethazine HCl 25 mg 02/27/21 08:12 02/27/21 08:25 Promethazine Hcl 25mg/Ml 1ml Vial IV 02/27/21 08:13 25 mg ONCE ONE Administration Sodium Chloride 25 ml 02/27/21 08:12 02/27/21 08:25 Sodium Chloride 0.9% 25ml Bag IV 02/27/21 08:13 25 ml ONCE ONE Administration Medical Decision Narrative: 25-year-old female who presents with a history of migraines with an intractable migraine since yesterday morning. Patient is allergic to Reglan and Compazine and states that she typically gets Toradol and Phenergan as a migraine cocktail. She was given 25 mg of IV Benadryl, Toradol 30 mg IV, Phenergan 25 mg IV as well as 10 mg of IV dexamethasone. IV fluid bolus 1 L. Patient was continuing to have headache and therefore 1 g of Tylenol p.o. was added as well as 2 g IV magnesium sulfate. no red flag symptoms for intracranial bleeding or venous sinus thrombosis. She is overall well-appearing nontoxic. Patient symptom improved after therapy and was discharged home in good condition. Headache HPI - General Chief Complaint: Headache Stated Complaint: migraine Time Seen by Provider: 02/27/21 07:50 Mode of Arrival: Ambulatory Limitations: No Limitations Description of Symp
[2021-02-27 09:12] VITALS: BP 118/79; PULSE 85; RESP 16; O2SAT 98
[2021-02-27 10:40] VITALS: BP 109/78; PULSE 84; RESP 18; O2SAT 97
[2021-02-27 10:48] VITALS: BP 109/63; PULSE 78; RESP 16; TEMP 36.6; O2SAT 98
== END 2021-02-27 10:50 | disposition home or self-care (01) ==
PROVIDERS: Emergency Provider Student in an Organized Health Care Education/Training Program; PCP Emergency Medicine
DX: G43.119 Migraine with aura, intractable, without status migrainosus (principal); Z88.2 Allergy status to sulfonamides; Z88.5 Allergy status to narcotic agent
CPT/HCPCS: 96365; 96367; 96375; 99282

== ENCOUNTER 2021-02-27 21:35 | Observation (INO) | payer OTHER, SELFPAY ==
[2021-02-27 21:36] VITALS: BP 133/76; PULSE 96; RESP 19; TEMP 36.6; O2SAT 98; BMI 28.3
--- NOTE | 2021-02-27 22:07 | CT_ITS ---
PROCEDURE INFORMATION: Exam: CT Head Without Contrast Exam date and time: 02/27/2021 10:07 PM Age: 45 years old Clinical indication: Other: Headache TECHNIQUE: Imaging protocol: Computed tomography of the head without contrast. Radiation optimization: All CT scans at this facility use at least one of these dose optimization techniques: automated exposure control; mA and/or kV adjustment per patient size (includes targeted exams where dose is matched to clinical indication); or iterative reconstruction. COMPARISON: MR HEAD/BRAIN WO/W CON 08/31/2019 10:35 AM FINDINGS: Brain: No intracranial hemorrhage. No mass. No definite edema. Cerebral ventricles: No hydrocephalus. Paranasal sinuses: No acute sinusitis. Mastoid air cells: No significant effusion. Orbital cavity: Unremarkable as visualized. Bones/joints: No acute fracture. Soft tissues: Unremarkable. IMPRESSION: No definite acute intracranial abnormality. If symptoms persist, consider MRI.
[2021-02-28] VITALS (12 sets, daily range): BP systolic 94–136; BP diastolic 58–79; PULSE 82–94; RESP 12–18; TEMP 36.3–36.9; O2SAT 95–100; BMI 29.3
--- NOTE | 2021-02-28 00:40 | PC.NURSE ---
changed pt to a cardiac monitoring room d/t magnesium infusion.
--- NOTE | 2021-02-28 01:52 | PC.NURSE ---
pt c/o right lower arm tingling and right lower leg tingling, Pt has normal reflexes, strong palpable pulses, and normal cap refill. Pt continues to c/o neck pain, towel roll placed behind pt neck to help with neck fatigue.
--- NOTE | 2021-02-28 02:09 | PC.NURSE ---
Pt's Mag is complete, she states her H/A decreased from an 8 to a 5 on scale 1-10. Pt states her neck pain is better with the neck roll. Dr Hilton at bed side.
--- NOTE | 2021-02-28 02:22 | HMH.EDGENADL ---
ED Disposition Clinical Impression: Status migrainosus Disposition: Admitted As Inpatient Condition on Discharge: Good Referrals: Erik Hook MD [Primary Care Provider] - - Critical Care Critical Care Time: No Attestation: On 02/27/21, the high probability of a clinically significant, sudden or life threatening deterioration of the following system(s) required my full and direct attention, intervention and personal management. The time I documented below is in addition to time spent performing reported procedures but includes the following listed in this critical care notation. Medical Decision Making - Teo Inquiry Pt receiving controlled substance: Yes Teo was queried for this patient: Yes Risks and benefits of using a controlled substance: were discussed with pt by me Vital Signs: 02/27/21 21:36 02/28/21 00:51 02/28/21 01:00 Temperature 97.8 F Temperature Source Oral Pulse Rate 85 83 Pulse Rate [Right] 96 H Respiratory Rate 19 Blood Pressure 107/79 L 110/79 Blood Pressure [Right Arm] 133/76 Blood Pressure Mean 85 89 Blood Pressure Mean [Right Arm] 95 Blood Pressure Source [Right Arm] Automatic Cuff Blood Pressure Position [Right Arm] Supine 02 Sat by Pulse Oximetry 98 99 96 Oxygen Delivery Method Room Air 02/28/21 01:30 02/28/21 02:00 Temperature Temperature Source Pulse Rate 89 88 Pulse Rate [Right] Respiratory Rate 13 13 Blood Pressure 109/76 L 94/72 L Blood Pressure [Right Arm] Blood Pressure Mean Blood Pressure Mean [Right Arm] Blood Pressure Source [Right Arm] Blood Pressure Position [Right Arm] 02 Sat by Pulse Oximetry 99 100 Oxygen Delivery Method Room Air Room Air Orders (Tests/Meds): ED MEDICATIONS Generic Name Dose Route Start Last Admin Trade Name Freq PRN Reason Stop Dose Admin Lactated Ringer's 1,000 mls @ 999 mls/hr 02/28/21 00:45 02/28/21 00:45 Lactated Ringer's 1000 Ml Bag IV 02/28/21 01:45 999 mls/hr .Q1H1M CHRISTEN Administration Discontinued Medications Generic Name Dose Route Start Last Admin Trade Name Freq PRN Reason Stop Dose Admin Diphenhydramine HCl 25 mg 02/27/21 22:11 02/27/21 22:43 Diphenhydramine 50mg/Ml Vial IV 02/27/21 22:12 25 mg ONCE ONE Administration Magnesium Sulfate 2 gm/ Sodium 104 mls @ 100 mls/hr 02/28/21 00:40 02/28/21 00:56 Chloride IV 02/28/21 01:42 100 mls/hr ONCE ONE Administration Ketorolac Tromethamine 30 mg 02/27/21 22:11 02/27/21 22:43 Ketorolac 30mg/Ml Vial IV 02/27/21 22:12 30 mg ONCE ONE Administration Promethazine HCl 25 mg 02/28/21 00:40 02/28/21 00:45 Promethazine Hcl 25mg/Ml 1ml Vial IV 02/28/21 00:41 25 mg ONCE ONE Administration Sodium Chloride 25 ml 02/28/21 00:40 Sodium Chloride 0.9% 25ml Bag IV 02/28/21 00:41 ONCE ONE ORDERS Category Date Time Status Rapid PCR Covid and Flu A/B Stat Lab 02/28/21 02:19 Ordered Medical Decision Narrative: The patient is a 45-year-old female who presents to the emergency department with headache. Differential diagnosis includes migraine, subarachnoid hemorrhage, meningitis. Given this plan to obtain CT head and then reassess. I have very low suspicion for meningitis given that the patient has no fever, infectious symptoms, meningismus, changes in mental status. CT head was unremarkable. The patient was given Benadryl, Phenergan, Toradol, IV fluids. Reassessment she had no improvement in her headache so was started on IV magnesium. On reassessment she had mild improvement but still complained of severe headache. I discussed potential transfer to a center that has a neurologist that could help manage her status migrainosus. She refused transfer and requested to be admitted here for pain control. I spoke with the hospital medicine team who admitted the patient. She was given morphine prior to admission. She remained stable while in the emergency department.
[2021-02-28 02:35] LABS: Coronavirus 19, PCR Not Detected (NotDetected); Influenza A, PCR Not Detected (NotDetected); Influenza B, PCR Not Detected (NotDetected)
--- NOTE | 2021-02-28 03:04 | PC.NURSE ---
PT ARRIVED TO FLOOR VIA W/C FROM ED W/STAFF AT [id number]
--- NOTE | 2021-02-28 07:12 | HMH.PHAVTE ---
[facility] Pharmacy VTE Monitoring - Patient Demographics Admission date: 02/27/21 Report Date: 02/28/21 Time: 07:12 Allergies/Adverse Reactions: Patient Allergies codeine [CODEINE] Allergy (Unknown, Verified 02/28/21 03:58) VOMITING, RASH metoclopramide [From REGLAN] Allergy (Unknown, Verified 02/28/21 03:58) SEIZURES oxycodone [From PERCOCET] Allergy (Unknown, Verified 02/28/21 03:58) NA-NAUSEA/VOMITING prochlorperazine Allergy (Unknown, Verified 02/28/21 03:58) NA-HALLUCINATIONS Sulfa (Sulfonamide Antibiotics) [SULFA (SULFONAMIDE ANTIBIOTICS)] Allergy (Unknown, Verified 02/28/21 03:58) I-RASH alendronate sodium [From Fosamax] Adverse Reaction (Intermediate, Verified 02/28/21 03:58) Abdominal Pain Height: 1.55 m Weight: 70.562 kg Patient Problems: Current Active Problems Status migrainosus (Acute) - VTE Risk Was VTE Risk Assessment Performed: Yes VTE Score: 2 VTE Risk Level: Very Low Risk Clinical Trial Participant: No - Prophylaxis VTE Prophylaxis Ordered?: Yes Types of VTE Prophylaxis: TEDS Knee High
--- NOTE | 2021-02-28 07:18 | HMH.PHAINT ---
home medication list verified using list from Clinic pharmacy and pt interview
[2021-02-28 09:17] LABS: Basophils % 0.3 % (0.1-2.0); Eosinophils # 0.1 K/mm3 (0.0-0.4); Eosinophils % 0.7 % (0.1-12.0); Hematocrit 42.3 % (37.0-47.0); Lymphocytes # 1.8 K/mm3 (0.7-4.5); Lymphocytes % 13.7 % (10-50); Mean Corpuscular Hemoglobin 28.4 pg (27.0-31.2); Mean Corpuscular Volume 86.1 fl (81-99); Mean Platelet Volume 7.9 fl (7.4-10.4); Monocytes # 0.6 K/mm3 (0.1-1.0); Monocytes % 4.4 % (1.7-9.3); Neutrophils # 10.8 K/mm3 (1.8-7.8); Neutrophils % 80.9 % (37.0-80.0); Platelet Count 224 K/mm3 (142-424); Red Blood Count 4.91 M/mm3 (4.20-5.40); White Blood Count 13.4 K/mm3 (4.8-10.8)
[2021-02-28 09:27] LABS: Alanine Aminotransferase 23 U/L (12-78); Albumin Level 4.1 g/dl (3.5-5.0); Albumin/Globulin Ratio 1.4 (1.1-1.8); Alkaline Phosphatase 72 U/L (38-126); Anion Gap 7.2 mEq/L (5-15); Aspartate Amino Transferase 26 U/L (14-36); Bilirubin,Total 0.3 mg/dl (0.2-1.3); Blood Urea Nitrogen 9 mg/dl (7-17); Calcium 8.1 mg/dl (8.4-10.2); Carbon Dioxide 29 mmol/L (22.0-30.0); Chloride 109 mmol/L (98-107); Creatinine Clearance Estimated 101 mL/min (50-200); Estimated Glomerular Filt Rate 78 ml/min (>60); GFR (African American) 95 ML/MIN (>60); Globulin 2.9 g/dL (1.3-3.2); Glucose 98 mg/dl (74-100); Potassium 4.2 mmoL/L (3.5-5.1); Sodium 141 mmol/L (136-145)
--- NOTE | 2021-02-28 13:56 | HMH.HP ---
*Admission Date: 02/27/21 *Chief complaint: Migraine *History of present illness: 45-year-old female patient presented to the [facility] ED with reports of ongoing headache. She was seen earlier in the day and received Phenergan, Benadryl, Toradol, and IV magnesium after feeling better she was discharged. She went home slept awoken and migraine had returned. She returned back to the emergency department rating pain 8 out of 10 also reports photophobia and nausea but denies vomiting. She is also taking her usual migraine medicine plus an abortive the day before and 2 days with no effect. She does have a history of migraines and reports not having a migraine of this intensity and 4 years. She denies any weakness or numbness. She denied transfer to a facility with a neurologist to help treat her migraines and was admitted to [facility] for pain control. 02/27/[address]: FINDINGS: Brain: No intracranial hemorrhage. No mass. No definite edema. Cerebral ventricles: No hydrocephalus. Paranasal sinuses: No acute sinusitis. Mastoid air cells: No significant effusion. Orbital cavity: Unremarkable as visualized. Bones/joints: No acute fracture. Soft tissues: Unremarkable. IMPRESSION: No definite acute intracranial abnormality. If symptoms persist, consider MRI. Electronically signed by Hernandez Davies MD 45-year-old female patient resting in bed quietly with eyes closed, she awakens to verbal stimuli. she reports migraine is less today in intensity than was last night, she tolerated her breakfast without any reports of nausea or vomiting. [facility] History I have reviewed the patient's past medical history: Yes Medical History: Reports:: Anxiety, Depression, Gastroesophageal Reflux Disease(GERD), Migraine Denies:: Cancer, Diabetes Mellitus Type 1, Diabetes Mellitus Type 2, Hypertension, Internal Pacemaker, Lung Disease, MRSA, Seizures *Have you ever received a pneumonia vaccine?: No *Have you received a flu vaccine this season?: Yes Other Medical History: Reports: Anemia, Hypothyroidism, Thyroid Disease, Other Other Surgeries: Yes: Appendectomy, Cholecystectomy, Colonoscopy, Diagnostic Lap, EGD, Hysterectomy-Total, Sinus Surgery, Tubal Ligation, Other (ablasion). No: Pacemaker Amputation: No Fractures: No - *Social History Last grade of school completed: High school graduate Smoking Status: Never smoker Alcohol Intake: never Alcohol Intake Frequency:: holidays/special occasions only Substance Use Type: denies use *Occupational Status:: employed Housing: house Household Members: spouse *Travel in the last 8 weeks: None - Psychiatric History Pschychiatric History:: Reports:: Anxiety, Depression Family Hx:: Cancer, Diabetes Review of Systems - Review of Systems Review of systems:: pertinent systems reviewed and negative unless documented below - Constitutional Reports fatigue, Denies anorexia, Denies daytime sleepiness - Eyes Reports sensitivity to light, Denies blind spots, Denies change in vision - ENT Reports headache(s), Denies abnormal hearing, Denies nasal congestion, Denies pain with swallowing - *Cardiovascular Denies chest pain, Denies shortness of breath - *Respiratory Denies chest congestion, Denies shortness of breath, Denies coughing up blood - *Gastrointestinal Denies abdominal pain, Denies change in bowel habits - *Musculoskeletal Denies abnormal walking, Denies decreased muscle mass - Integumentary/Breasts Denies hair loss, Denies changing lesions - *Neurologic Denies abnormal walking, Denies abnormal movements, Denies abnormal speech - Psychiatric Denies hearing things others do not hear, Denies difficulty concentrating - Endocrine Denies cold intolerance, Denies heat intolerance - Hematologic/Lymphatic Denies easy bleeding, Denies easy bruising - Allergic/Immunologic Denies GI upset with certain foods, Denies wheezing Meds Home Medications Medicatio
--- NOTE | 2021-02-28 15:04 | PC.NURSE ---
Pt has been pleasant and cooperative this shift. A&O X4. Pt has had multiple complaints of pain and has been medicated with Morphine per MAR. Pt is on room air with sats. >90%. Lungs CTA. No edema noted. Skin is C/D/I. Pt is tolerating a regular diet well but reports that she doesn't have much of an appetite. Pt has slept for the majority of the shift. Pt ambulates independently to/from the bathroom and throughout the room. Abdomen is soft and non-tender. Pt voids clear, yellow urine without issue. No BM today. 20 G peripheral IV in the LT AC is patent and infusing NS @ 50 ML/HR. VSS. Call light within reach. Will continue to monitor.
[2021-03-01 04:00] VITALS: BP 112/69; PULSE 78; RESP 16; TEMP 36.7; O2SAT 98
[2021-03-01 05:02] VITALS: BMI 29.5
--- NOTE | 2021-03-01 05:40 | PC.NURSE ---
Patient has c/o head and neck pain; pain medication administered per MAR; no s/s of acute distress noted at this time. Bed at lowest level for safety, call light within reach; will continue to monitor.
[2021-03-01 06:43] LABS: Basophils # 0.1 K/mm3 (0-0.2); Basophils % 1.2 % (0.1-2.0); Eosinophils # 0.2 K/mm3 (0.0-0.4); Eosinophils % 2.4 % (0.1-12.0); Hematocrit 38.7 % (37.0-47.0); Hemoglobin 12.7 g/dL (12.2-16.2); Lymphocytes # 2.6 K/mm3 (0.7-4.5); Lymphocytes % 32.5 % (10-50); Mean Corpuscular HGB Conc 32.7 g/dL (31.8-35.4); Mean Corpuscular Hemoglobin 28.5 pg (27.0-31.2); Mean Corpuscular Volume 87.1 fl (81-99); Mean Platelet Volume 8.2 fl (7.4-10.4); Monocytes # 0.4 K/mm3 (0.1-1.0); Monocytes % 5.3 % (1.7-9.3); Neutrophils # 4.6 K/mm3 (1.8-7.8); Neutrophils % 58.6 % (37.0-80.0); Platelet Count 206 K/mm3 (142-424); Red Blood Count 4.44 M/mm3 (4.20-5.40); Red Cell Distribution Width 13.2 % (11.5-17.5); White Blood Count 7.8 K/mm3 (4.8-10.8)
[2021-03-01 07:18] LABS: Anion Gap 7.7 mEq/L (5-15); Blood Urea Nitrogen 10 mg/dl (7-17); Carbon Dioxide 29 mmol/L (22.0-30.0); Chloride 109 mmol/L (98-107); Creatinine Clearance Estimated 101 mL/min (50-200); Estimated Glomerular Filt Rate 78 ml/min (>60); GFR (African American) 95 ML/MIN (>60); Glucose 93 mg/dl (74-100); Potassium 4.7 mmoL/L (3.5-5.1); Sodium 141 mmol/L (136-145)
[2021-03-01 07:22] LABS: Calcium 6.9 mg/dl (8.4-10.2)
[2021-03-01 07:38] VITALS: BP 125/59; PULSE 86; RESP 17; TEMP 36.7; O2SAT 99
[2021-03-01 08:00] VITALS: PULSE 86; RESP 17; O2SAT 99
--- NOTE | 2021-03-01 09:20 | HMH.DCSUM ---
General - General Admission date:: 02/28/21 Discharge date: 03/01/21 HPI HPI: 45-year-old female patient presented to the [facility] ED with reports of ongoing headache. She was seen earlier in the day and received Phenergan, Benadryl, Toradol, and IV magnesium after feeling better she was discharged. She went home slept awoken and migraine had returned. She returned back to the emergency department rating pain 8 out of 10 also reports photophobia and nausea but denies vomiting. She is also taking her usual migraine medicine plus an abortive the day before and 2 days with no effect. She does have a history of migraines and reports not having a migraine of this intensity and 4 years. She denies any weakness or numbness. She denied transfer to a facility with a neurologist to help treat her migraines and was admitted to [facility] for pain control. 02/27/[address]: FINDINGS: Brain: No intracranial hemorrhage. No mass. No definite edema. Cerebral ventricles: No hydrocephalus. Paranasal sinuses: No acute sinusitis. Mastoid air cells: No significant effusion. Orbital cavity: Unremarkable as visualized. Bones/joints: No acute fracture. Soft tissues: Unremarkable. IMPRESSION: No definite acute intracranial abnormality. If symptoms persist, consider MRI. Electronically signed by Hernandez Davies MD 45-year-old female patient resting in bed quietly with eyes closed, she awakens to verbal stimuli. she reports migraine is less today in intensity than was last night, she tolerated her breakfast without any reports of nausea or vomiting. Hospital Course Hospital Course: 45-year-old female patient presented to the [facility] ED with reports of ongoing headache. She was seen earlier in the day and received Phenergan, Benadryl, Toradol, and IV magnesium after feeling better she was discharged. She went home slept awoken and migraine had returned. She returned back to the emergency department rating pain 8 out of 10 also reports photophobia and nausea but denies vomiting. She is also taking her usual migraine medicine plus an abortive the day before and 2 days with no effect. She does have a history of migraines and reports not having a migraine of this intensity and 4 years. She denies any weakness or numbness. She denied transfer to a facility with a neurologist to help treat her migraines and was admitted to [facility] for pain control. 02/27/[address]: FINDINGS: Brain: No intracranial hemorrhage. No mass. No definite edema. Cerebral ventricles: No hydrocephalus. Paranasal sinuses: No acute sinusitis. Mastoid air cells: No significant effusion. Orbital cavity: Unremarkable as visualized. Bones/joints: No acute fracture. Soft tissues: Unremarkable. IMPRESSION: No definite acute intracranial abnormality. If symptoms persist, consider MRI. Electronically signed by Hernandez Davies MD Yesterday during the day she complained of multiple episodes of nausea with no emesis. She was also reporting photophobia and requested not to be bothered most of day. She did receive another abortive agent with no effect and pain was treated with morphine IV with little result in lowering migraine pain. 45-year-old female patient resting in bed quietly with eyes closed, she awakens to verbal stimuli. she reports migraine is less today in intensity than was last night, she tolerated her breakfast without any reports of nausea or vomiting. She reports migraine now is not typical of other previous migraines, pain starts more at base of head/neck area and moves up to top of head. She currently denies any nausea/vomiting and pain is rated as a 2/10. Discussed discharge home with her today and she is agreeable to this, she is allergic to multiple pain medications and reports Toradol has seemed to help in the past. PLAN: 1. We will discharge home today 2. Ketorolac 10 mg 3 times gopal
--- NOTE | 2021-03-01 11:00 | HMH.PHAINT ---
DISCHARGE MEDICATION COUNSELING COMPLETED. PATIENT ENDORSED NO QUESTIONS AT THIS TIME
== END 2021-03-01 12:45 | disposition home or self-care (01) ==
LOC: ER 02-28 02:33 → 2ND 02-28 03:40
PROVIDERS: Nurse Practitioner Family; Admitting Provider Family Medicine; Emergency Provider Emergency Medicine; PCP Emergency Medicine; Visit Provider Emergency Medicine
DX: G43.901 Migraine, unspecified, not intractable, with status migrainosus (principal); E03.9 Hypothyroidism, unspecified; F41.9 Anxiety disorder, unspecified; K21.9 Gastro-esophageal reflux disease without esophagitis; Z79.899 Other long term (current) drug therapy
CPT/HCPCS: 36415; 70450; 80048; 80053; 85025; 96365; 96366; 96375; 99283; G0378; U0003

== ENCOUNTER → 2021-03-15 10:42 | Outpatient (CLI) | payer OTHER, SELFPAY | PROVIDERS: PCP Emergency Medicine; Visit Provider Nurse Practitioner | DX: Z20.822 Contact with and (suspected) exposure to COVID-19 (principal) | CPT/HCPCS: U0003 ==

== ENCOUNTER → 2021-03-22 10:37 | Outpatient (CLI) | payer OTHER, SELFPAY ==
--- NOTE | 2021-03-22 10:38 | CT_ITS ---
PROCEDURE INFORMATION: Exam: CT Abdomen Without And With Contrast, Liver Exam date and time: 03/22/2021 10:38 AM Age: 45 years old Clinical indication: Abnormal findings; Abnormal radiologic finding of the abdomen; Radiologic exam and body structure: Mri; Additional info: Hepatic mass seen on breast mri TECHNIQUE: Imaging protocol: Computed tomography images of the abdomen without and with intravenous contrast. Radiation optimization: All CT scans at this facility use at least one of these dose optimization techniques: automated exposure control; mA and/or kV adjustment per patient size (includes targeted exams where dose is matched to clinical indication); or iterative reconstruction. Contrast material: ISOVUE 370; Contrast volume: 75 ml; Contrast route: IV; COMPARISON: CT ABDOMEN PELVIS W CON 02/23/2020 7:53 PM FINDINGS: Liver: Multiple abnormal areas in the liver. Largest measures 13 mm and 71 Hounsfield units. (Series 7, image 14.) There are multiple smaller lesions in the liver. They were present in February 2020. Some of the lesions have increased in size. Recommend liver MRI for further evaluation. Gallbladder and bile ducts: Cholecystectomy Pancreas: Normal. No ductal dilation. Spleen: Normal. No splenomegaly. Adrenals: Normal. No mass. Kidneys and ureters: Normal. No hydronephrosis. Stomach and bowel: Normal. No obstruction. No mucosal thickening. Intraperitoneal space: Unremarkable. No free air. No significant fluid collection. Lymph nodes: Unremarkable. No enlarged lymph nodes. Vasculature: Unremarkable. No abdominal aortic aneurysm. Bones/joints: Unremarkable. No acute fracture. No dislocation. Soft tissues: Unremarkable. IMPRESSION: Multiple abnormal areas in the liver. Largest measures 13 mm and 71 Hounsfield units. (Series 7, image 14.) There are multiple smaller lesions in the liver. They were present in February 2020. Some of the lesions have increased in size. Recommend liver MRI for further evaluation.
== END ==
PROVIDERS: PCP Emergency Medicine; Visit Provider Physician Assistant
DX: R16.0 Hepatomegaly, not elsewhere classified (principal)
CPT/HCPCS: 74170; Q9967

== ENCOUNTER → 2021-04-05 09:56 | Outpatient (CLI) | payer OTHER, SELFPAY ==
--- NOTE | 2021-04-05 09:56 | MR_ITS ---
PROCEDURE INFORMATION: Exam: MR Abdomen Without and With Contrast Exam date and time: 04/05/2021 9:56 AM Age: 45 years old Clinical indication: Abnormal findings; Abnormal radiologic finding of the abdomen; Radiologic exam and body structure: CT; Additional info: Abn CT. Abnormal CT scan 03-22-21. Right upper quadrant pain x2wks. 13ml prohance given. Lot: [id number] exp: Sep 2023 TECHNIQUE: Imaging protocol: MR of the abdomen without and with intravenous contrast. Contrast material: PROHANCE; Contrast volume: 13 ml; Contrast route: IV; COMPARISON: CT ABDOMEN WO/W CON 03/22/2021 10:54 AM FINDINGS: Liver: Multiple liver lesions measuring between 1.0-1.5 cm with intrinsic T2 hyperintense/T1 isointense signal without in the ink artifact or significant signal dropout on fat suppressed imaging to suggest fat content. Liver lesion demonstrate hyperintense signal on DWI sequence with correlating hyperintense signal on ADC, consistent with T2 shine through. No diffuse hyperenhancement is demonstrated on arterial or portal venous phase imaging. Few lesions contain a punctate mural nodule (i.e. hepatic segment 5 series 19, image 40) or thin enhancing septations (i.e. hepatic segment 7 series 15, image 15). Delayed 10 minutes postcontrast images demonstrate filling of multiple lesions with intravenous contrast, which likely reflects vicarious biliary excretion of contrast. No biliary excretion of contrast is evident in the common bile duct, possibly due to timing. Gallbladder and bile ducts: Status post cholecystectomy with susceptibility artifact at the gallbladder fossa related to surgical clips. No intra- or extra-hepatic biliary ductal dilation. Pancreas: Unremarkable. Spleen: Unremarkable. Adrenal glands: Unremarkable. Kidneys and ureters: Unremarkable. Stomach and bowel: Visualized stomach and intestines are unremarkable. Intraperitoneal space: No free fluid. Bones/joints: Unremarkable. Soft tissues: Unremarkable. 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 Given stability in size compared with 02/23/2020 CT abdomen/pelvis, favor benign biliary hamartomas.
== END ==
PROVIDERS: PCP Emergency Medicine; Visit Provider Physician Assistant
DX: K76.9 Liver disease, unspecified (principal)
CPT/HCPCS: 74183; A9576

== ENCOUNTER → 2021-04-20 11:12 | Outpatient (CLI) | payer OTHER, SELFPAY ==
[2021-04-21 09:16] LABS: CA 19-9 20 U/mL (0-35); CEA 1.5 ng/mL (0.0-4.7)
== END ==
PROVIDERS: Visit Provider Internal Medicine Gastroenterology
DX: R93.3 Abnormal findings on diagnostic imaging of other parts of digestive tract (principal); K76.9 Liver disease, unspecified
CPT/HCPCS: 36415; 82378; 86316

== ENCOUNTER → 2021-07-03 07:33 | Outpatient (CLI) | payer OTHER, SELFPAY ==
[2021-07-03 08:10] LABS: Basophils # 0.1 K/mm3 (0-0.2); Basophils % 1.5 % (0.1-2.0); Eosinophils # 0.2 K/mm3 (0.0-0.4); Eosinophils % 4.5 % (0.1-12.0); Hematocrit 40.8 % (37.0-47.0); Hemoglobin 13.7 g/dL (12.2-16.2); Lymphocytes # 1.7 K/mm3 (0.7-4.5); Lymphocytes % 33.5 % (10-50); Mean Corpuscular HGB Conc 33.6 g/dL (31.8-35.4); Mean Corpuscular Volume 86.3 fl (81-99); Mean Platelet Volume 8.9 fl (7.4-10.4); Monocytes # 0.2 K/mm3 (0.1-1.0); Monocytes % 4.9 % (1.7-9.3); Neutrophils # 2.8 K/mm3 (1.8-7.8); Neutrophils % 55.7 % (37.0-80.0); Platelet Count 245 K/mm3 (142-424); Red Blood Count 4.73 M/mm3 (4.20-5.40); Red Cell Distribution Width 13.3 % (11.5-17.5)
[2021-07-03 08:25] LABS: Alanine Aminotransferase 16 U/L (12-78); Albumin Level 4.1 g/dl (3.5-5.0); Albumin/Globulin Ratio 1.6 (1.1-1.8); Alkaline Phosphatase 70 U/L (38-126); Anion Gap 10.4 mEq/L (5-15); Aspartate Amino Transferase 26 U/L (14-36); Bilirubin,Total 0.3 mg/dl (0.2-1.3); Blood Urea Nitrogen 12 mg/dl (7-17); Calcium 9.7 mg/dl (8.4-10.2); Carbon Dioxide 31 mmol/L (22.0-30.0); Chloride 104 mmol/L (98-107); Estimated Glomerular Filt Rate 60 ml/min (>60); GFR (African American) 73 ML/MIN (>60); Globulin 2.6 g/dL (1.3-3.2); Glucose 106 mg/dl (74-100); Potassium 4.4 mmoL/L (3.5-5.1); Sodium 141 mmol/L (136-145); Total Protein,Serum 6.7 g/dl (6.3-8.2); Uric Acid 3.4 mg/dl (2.5-6.2)
[2021-07-03 08:30] LABS: C-Reactive Protein 5.5 mg/L (0-4)
[2021-07-03 08:42] LABS: 25-OH Vitamin D, Total 41.1 ng/mL (30-100); Free T4 (Free Thyroxine) 1.07 ng/dl (0.78-2.19)
[2021-07-03 09:16] LABS: Vitamin B12 655 pg/mL (239-931)
[2021-07-03 10:38] LABS: Thyroid Stimulating Hormone 2.81 uIU/mL (0.465-4.68)
[2021-07-04 04:20] LABS: RA Latex Turbid. <10.0 IU/mL (<14.0); Thyroid Peroxidase Antibodies 84 IU/mL (0-34)
[2021-07-04 12:12] LABS: Lupus Reflex Interpretation Comment: (.); PTT-LA 30.3 sec (0.0-51.9); dRVVT 45.1 sec (0.0-47.0)
[2021-07-04 15:10] LABS: Anti-Centromere B Antibodies <0.2 AI (0.0-0.9); Anti-DNA (DS) Ab Qn 3 IU/mL (0-9); Anti-Jo-1 <0.2 AI (0.0-0.9); Anti-Smith Antibody <0.2 AI (0.0-0.9); Antichromatin Antibodies <0.2 AI (0.0-0.9); Antiscleroderma-70 Antibodies <0.2 AI (0.0-0.9); RNP Antibodies <0.2 AI (0.0-0.9); Sjogren's Anti-SS-A <0.2 AI (0.0-0.9); Sjogren's Anti-SS-B <0.2 AI (0.0-0.9)
[2021-07-04 23:17] LABS: Anti-Cyclic Citrullinated Pept 5 units (0-19)
[2021-07-05 20:29] LABS: Antinuclear Antibodies, IFA Negative (.)
== END ==
PROVIDERS: Visit Provider Emergency Medicine
DX: E03.9 Hypothyroidism, unspecified (principal); M19.90 Unspecified osteoarthritis, unspecified site; R53.83 Other fatigue; E55.9 Vitamin D deficiency, unspecified
CPT/HCPCS: 36415; 80053; 82306; 82607; 84439; 84443; 84481; 84550; 85025; 85613; 86038; 86140; 86200; 86225; 86235; 86376; 86431

== ENCOUNTER 2021-07-05 15:30 | Outpatient (CLI) | payer OTHER, SELFPAY ==
[2021-07-05 15:42] VITALS: BP 139/75; PULSE 92; RESP 17; TEMP 36.6; O2SAT 100
== END 2021-07-05 15:45 | disposition home or self-care (01) ==
LOC: INF 15:30
PROVIDERS: PCP Emergency Medicine; Visit Provider Physician Assistant
DX: M85.89 Other specified disorders of bone density and structure, multiple sites (principal)
CPT/HCPCS: 96372; J0897

== ENCOUNTER → 2021-07-16 16:37 | Outpatient (CLI) | payer OTHER, SELFPAY ==
--- NOTE | 2021-07-16 16:37 | MR_ITS ---
PROCEDURE INFORMATION: Exam: MRA Neck Without Contrast Exam date and time: 07/16/2021 4:37 PM Age: 46 years old Clinical indication: Pain; Headache; Additional info: Severe headaches, pulsatile tinnitus. Migraine headache. Pulsating in RT ear will stop when turning head. TECHNIQUE: Imaging protocol: Magnetic resonance angiography of the neck without contrast. COMPARISON: CT HEAD/BRAIN WO CON 02/27/2021 10:43 PM FINDINGS: Right common carotid artery: No stenosis. No dissection or occlusion. Right internal carotid artery: No stenosis of the extracranial segment. No dissection or occlusion. Right external carotid artery: No stenosis. No dissection or occlusion of the origin. Right vertebral artery: No stenosis. No dissection or occlusion. Left common carotid artery: No stenosis. No dissection or occlusion. Left internal carotid artery: No stenosis of the extracranial segment. No dissection or occlusion. Left external carotid artery: No stenosis. No dissection or occlusion of the origin. Left vertebral artery: No stenosis. No dissection or occlusion. IMPRESSION: No stenosis, occlusion or pseudoaneurysm. REFERENCES: NASCET CRITERIA. The degree of internal carotid artery stenosis is based on NASCET criteria. Normal is no stenosis. Mild is less than 50% stenosis. Moderate is 50-69% stenosis. Severe is 70% to 99% stenosis. Total occlusion is no detectable patent lumen.
--- NOTE | 2021-07-16 16:37 | MR_ITS ---
PROCEDURE INFORMATION: Exam: MRA Head Without Contrast; Arteriography Exam date and time: 07/16/2021 4:37 PM Age: 46 years old Clinical indication: Pain; Headache; Additional info: Intractable headaches, pulsatile tinnitus. Migraine headache. Pulsating in RT ear will stop when turning head. TECHNIQUE: Imaging protocol: Magnetic resonance angiography head without contrast. Exam focused on the arteries. COMPARISON: CT HEAD/BRAIN WO CON 02/27/2021 10:43 PM FINDINGS: ANTERIOR CIRCULATION: Right internal carotid artery: Intracranial segment is patent with no significant stenosis. No aneurysm. Right middle cerebral artery: No occlusion or significant stenosis. No aneurysm. Right anterior cerebral artery: No occlusion or significant stenosis. No aneurysm. Left internal carotid artery: Intracranial segment is patent with no significant stenosis. No aneurysm. Left middle cerebral artery: No occlusion or significant stenosis. No aneurysm. Left anterior cerebral artery: No occlusion or significant stenosis. No aneurysm. POSTERIOR CIRCULATION: Right vertebral artery: No occlusion or significant stenosis. No aneurysm. Left vertebral artery: No occlusion or significant stenosis. No aneurysm. Basilar artery: No occlusion or significant stenosis. No aneurysm. Right posterior cerebral artery: No occlusion or significant stenosis. No aneurysm. Left posterior cerebral artery: No occlusion or significant stenosis. No aneurysm. IMPRESSION: No stenosis or occlusion.
== END ==
PROVIDERS: PCP Physician Assistant; Visit Provider Specialist
DX: R51.9 Headache, unspecified (principal); G89.29 Other chronic pain
CPT/HCPCS: 70544; 70547

== ENCOUNTER → 2021-08-14 20:46 | Outpatient (CLI) | payer OTHER, SELFPAY ==
[2021-08-14 20:48] LABS: Adenovirus,PCR Not Detected (NotDetected); Bordetella Pertussis Not Detected (NotDetected); Chlamydophila Pneumoniae, PCR Not Detected (NotDetected); Coronavirus 19, PCR Not Detected (NotDetected); Coronavirus 229E Not Detected (NotDetected); Coronavirus NL63 Not Detected (NotDetected); Coronavirus OC43 Not Detected (NotDetected); Coronovirus HKU1,PCR Not Detected (NotDetected); Human Metapneumovirus Not Detected (NotDetected); Influenza A, PCR Not Detected (NotDetected); Influenza AH1, 2009 Not Detected (NotDetected); Influenza AH1, PCR Not Detected (NotDetected); Influenza AH3,PCR Not Detected (NotDetected); Influenza B, PCR Not Detected (NotDetected); Mycoplasma Pneumoniae, PCR Not Detected (NotDetected); Parainfluenza 1, PCR Not Detected (NotDetected); Parainfluenza 2, PCR Not Detected (NotDetected); Parainfluenza 3, PCR Not Detected (NotDetected); Parainfluenza 4, PCR Not Detected (NotDetected); Respiratory Syncytial Virus Not Detected (NotDetected); Rhinovirus/Enterovirus Not Detected (NotDetected)
== END ==
PROVIDERS: Visit Provider Emergency Medicine
DX: Z20.822 Contact with and (suspected) exposure to COVID-19 (principal)
CPT/HCPCS: 87581; 87632; 87798; C9803; U0003; U0005

== ENCOUNTER → 2021-08-16 16:47 | Outpatient (CLI) | payer OTHER, SELFPAY ==
[2021-08-16 17:22] LABS: Adenovirus,PCR Not Detected (NotDetected); Coronavirus 229E Not Detected (NotDetected); Coronavirus NL63 Not Detected (NotDetected); Coronavirus OC43 Not Detected (NotDetected); Coronovirus HKU1,PCR Not Detected (NotDetected); Human Metapneumovirus Not Detected (NotDetected); Influenza A, PCR Not Detected (NotDetected); Influenza AH1, 2009 Not Detected (NotDetected); Influenza AH1, PCR Not Detected (NotDetected); Influenza AH3,PCR Not Detected (NotDetected); Rhinovirus/Enterovirus Not Detected (NotDetected)
[2021-08-16 17:23] LABS: Influenza B, PCR Not Detected (NotDetected); Parainfluenza 1, PCR Not Detected (NotDetected); Parainfluenza 2, PCR Not Detected (NotDetected)
[2021-08-17 03:41] LABS: Bordetella Pertussis Not Detected (NotDetected); Chlamydophila Pneumoniae, PCR Not Detected (NotDetected); Coronavirus 19, PCR Not Detected (NotDetected); Mycoplasma Pneumoniae, PCR Not Detected (NotDetected); Parainfluenza 3, PCR Not Detected (NotDetected); Parainfluenza 4, PCR Not Detected (NotDetected); Respiratory Syncytial Virus Not Detected (NotDetected)
== END ==
PROVIDERS: Visit Provider Family Medicine
DX: Z20.822 Contact with and (suspected) exposure to COVID-19 (principal); R69 Illness, unspecified
CPT/HCPCS: 87581; 87632; 87798; C9803; U0003; U0005

== ENCOUNTER → 2021-08-27 16:00 | Outpatient (CLI) | payer OTHER, SELFPAY ==
[2021-08-28 12:52] LABS: Erythrocyte Sedimentation Rate 17 mm/hr (0-20)
[2021-08-29 15:12] LABS: Anti-DNA (DS) Ab Qn 3 IU/mL (0-9)
== END ==
LOC: LAB 09-14 16:12 → LAB.DROPOF 09-14 16:13
PROVIDERS: PCP Emergency Medicine; Visit Provider Specialist
DX: R51.9 Headache, unspecified (principal); E03.9 Hypothyroidism, unspecified; M19.90 Unspecified osteoarthritis, unspecified site; R53.83 Other fatigue; H53.419 Scotoma involving central area, unspecified eye
CPT/HCPCS: 36415; 85651; 86225

== ENCOUNTER 2021-08-28 07:52 | Outpatient (RCR) | payer OTHER, SELFPAY ==
--- NOTE | 2021-08-28 08:53 | HMH.PTOPEV ---
PT Outpatient Evaluation Rehab PT Outpatient Evaluation Start: 08/28/21 08:03 Freq: Status: Active Protocol: Document 08/28/21 08:04 CINDYJOSIE (Rec: 08/28/21 08:53 GINO [id number]) Electronically Signed By Bowen Stovall, LUPILLO 08/28/21 08:04 Outpatient Therapy Subjective History Subjective History This is the initial Physical Therapy evaluation for Ninoska Macdonald. Pt is a 46 y/o female referred to PT for c/o head aches and cervical pain. Pt reports long history of cervicalgia and head aches. Pt reports she has tried medicine and therapy w/ therapy giving some relief. Pt states the past few weeks she has had increased pain and visual auras during BARNETT's. Chief Complaint Pain,Stiff Symptom Type Ache,Throb,Sharp,Stabbing, Shooting Symptoms Relieved By Rest/Positioning Symptoms Aggravated By Sitting,Physical Activity Prior Functional Limitations None Current Functional Limitations Housework,Desk Work/Reading Level of pain today (0-10) 3 Pain scale - at its best (0-10) 3 Pain scale - at its worst (0-10) 7 Cervical Eval Palpation Cervical Muscles R Cervical Paraspinal,L Cervical Paraspinal,R Suboccipital,L Suboccipital,R Upper Trapezius,L Upper Trapezius Cervical/Thoracic Palpation Findings Spasm,Trigger Point,Muscle Guarding Passive Joint Mobility Cervical PIVM Dec: R C2/3 L C2/3 R C3/4 L C3/4 R C4/5 L C4/5 R C5/6 L C5/6 R C6/7 L C6/7 AROM Cervical Spine Extension Active Range of 50 Motion (degrees) Cervical Spine Flexion Active Range of 50 Motion (degrees) Cervical Spine Right Lateral Flexion 30 Active Range of Motion (degrees) Cervical Spine Left Lateral Flexion 30 Active Range of Motion (degrees) Cervical Spine Right Rotation Active 70 Range of Motion (degrees) Cervical Spine Left Rotation Active 50 Range of Motion (degrees) Special Test C-Spine Foraminal Compression (Spu
== END 2021-08-28 07:55 | disposition home or self-care (01) ==
LOC: PT 07:52
PROVIDERS: PCP Physician Assistant; Visit Provider Specialist
DX: G43.909 Migraine, unspecified, not intractable, without status migrainosus (principal)
CPT/HCPCS: 97010; 97012; 97014; 97110; 97140; 97163; G0283

== ENCOUNTER 2022-07-14 19:28 | Emergency (ER) | payer BC, SELFPAY ==
[2022-07-14 19:45] VITALS: BP 118/73; PULSE 111; RESP 18; TEMP 37.1; O2SAT 98; BMI 27.1
[2022-07-14 20:01] LABS: Influenza A, PCR Not Detected (NotDetected); Influenza B, PCR Not Detected (NotDetected)
--- NOTE | 2022-07-14 20:02 | EXP.UTC ---
Discharge Plan Disposition Patient Disposition: Home, Self-Care Condition: Good Prescriptions Prescriptions: No Action fluticasone propionate 50 mcg/actuation spray,suspension 1 spray INTRANASAL DAILY Qty: 16 2RF Rx Instructions: administer into each nostril esomeprazole magnesium 20 mg capsule,delayed release(DR/EC) 20 mg PO DAILY estradiol 1 mg tablet 1 mg PO .once a week Qty: 30 2RF Ubrelvy 100 mg tablet 100 mg PO ONCE PRN (Reason: migraine headache) Qty: 10 6RF Rx Instructions: as needed for migraine, max amount 2 tabs/day or 4 tabs/week bupropion HCl 300 mg tablet extended release 24 hr 300 mg PO DAILY Qty: 90 3RF estradiol 2 mg tablet 2 mg PO DAILY Qty: 90 3RF spironolactone 50 mg tablet See Rx Instructions .ROUTE .COMPLEX Qty: 90 3RF Dose Instruction: TAKE ONE TABLET BY MOUTH EVERY DAY Rx Instructions: TAKE ONE TABLET BY MOUTH EVERY DAY levothyroxine [Synthroid] 88 mcg tablet 88 mcg PO DAILY Qty: 30 5RF Prolia 60 mg/mL syringe 60 mg SQ [id number] Qty: 1 6RF ondansetron HCl 4 mg tablet 4 mg PO TID PRN (Reason: nausea and vomiting) Qty: 60 1RF alprazolam 1 mg tablet 1 mg PO BID PRN (Reason: anxiety) Qty: 60 3RF cetirizine 10 mg tablet See Rx Instructions .ROUTE .COMPLEX Qty: 90 1RF Dose Instruction: TAKE ONE TABLET BY MOUTH EVERY DAY FOR FOR ALLERGY SYMPTOMS Rx Instructions: TAKE ONE TABLET BY MOUTH EVERY DAY FOR FOR ALLERGY SYMPTOMS ibuprofen 800 mg tablet 800 mg PO BID PRN (Reason: headache) Qty: 60 6RF Ajovy Autoinjector 225 mg/1.5 mL auto-injector 225 mg SQ QMONTH Qty: 1.5 4RF Rx Instructions: Inject monthly as prescribed prednisone 20 mg tablet 20 mg PO DAILY Qty: 10 1RF ketorolac 10 mg tablet 10 mg PO Q8H PRN (Reason: migraine headache) Qty: 15 3RF denosumab 60 MG/ML syringe 60 mg SQ [id number] Referrals Follow up/Referrals: Case Pappas MD [Primary Care Provider] - See instructions Activity Restrictions/Add. Instructions Additional Instructions/Restrictions: covid/flu swab was sent to lab, call tomorrow for results. self isolate until test results are known to be negative No sign of a bacterial infection. Likely viral. Viruses can take 7-14 days to run their course. Nasal saline and bulb syringe or nose Celena to remove nasal drainage to help with nasal congestion. Hard to eat, drink, sleep with nasal congestion so important to keep this cleaned out. Monitor temp. Tylenol or Motrin as needed for pain or fever Encourage fluids, water, Gatorade, Powerade, Pedialyte if /toddler/child Warm salt water gargles Warm fluids Sore throat lozenges Sleep elevated Humidifier/vaporizer Follow-up immediately for new or worsening symptoms or no noticeable improvement over the next 48-72 hours. Clinical Impressions Clinical Impression: Upper respiratory infection, viral, Exposure to COVID-19 virus Stand Alone Forms Stand Alone Forms: Work/School Release Instructions Patient Instructions: DI for COVID-19 (Suspected or Confirmed ) Discharge ED Provider: Leticia ([facility])Shahram [facility] [place] HPI General Stated complaint: sore throat, cough, exposed to covid Time Seen by Provider: 07/14/22 20:03 HEENT Symptoms (Recalled from RN notes): Yes Resp Symptoms (Recalled from RN notes): Yes History of Present Illness Provider Complaint: 47 yr old female presents for body aches, chills, sore throat, and fatigue since this am. pt states she had a scratchy throat last night. has been exposed to covid Related Data Home Medications Medication Instructions Recorded Confirmed denosumab 60 mg/mL subcutaneous 60 mg SQ [id number] oestopenia 02/27/21 07/05/22 syringe esomeprazole magnesium 20 mg 20 mg PO DAILY 06/24/22 07/05/22 capsule,delayed release Previous Rx's Medication Instructions Recorded fluticasone propionate 50 1 spray intranasal DAILY nasal 03/29/21 mcg/actuati
--- NOTE | 2022-07-14 20:15 | PC.NURSE ---
PATIENT SENT TO ER PER Janelle ALBERTS APRN FOR FURTHER EVALUATION. REPORT GIVEN TO Lee PINEDA RN BY Janelle ALBERTS APRN
[2022-07-14 20:24] LABS: Coronavirus 19, PCR Detected (NotDetected)
[2022-07-14 20:37] VITALS: BP 111/62; PULSE 90; RESP 18; TEMP 37.1; O2SAT 100; BMI 27.1
--- NOTE | 2022-07-14 20:57 | PC.NURSE ---
Dr. Hook at
--- NOTE | 2022-07-14 21:04 | HMH.EDSYNC ---
Discharge Plan Disposition Patient Disposition: Home, Self-Care Condition: Good Prescriptions Prescriptions: No Action fluticasone propionate 50 mcg/actuation spray,suspension 1 spray INTRANASAL DAILY Qty: 16 2RF Rx Instructions: administer into each nostril esomeprazole magnesium 20 mg capsule,delayed release(DR/EC) 20 mg PO DAILY estradiol 1 mg tablet 1 mg PO .once a week Qty: 30 2RF Ubrelvy 100 mg tablet 100 mg PO ONCE PRN (Reason: migraine headache) Qty: 10 6RF Rx Instructions: as needed for migraine, max amount 2 tabs/day or 4 tabs/week bupropion HCl 300 mg tablet extended release 24 hr 300 mg PO DAILY Qty: 90 3RF estradiol 2 mg tablet 2 mg PO DAILY Qty: 90 3RF spironolactone 50 mg tablet See Rx Instructions .ROUTE .COMPLEX Qty: 90 3RF Dose Instruction: TAKE ONE TABLET BY MOUTH EVERY DAY Rx Instructions: TAKE ONE TABLET BY MOUTH EVERY DAY levothyroxine [Synthroid] 88 mcg tablet 88 mcg PO DAILY Qty: 30 5RF Prolia 60 mg/mL syringe 60 mg SQ [id number] Qty: 1 6RF ondansetron HCl 4 mg tablet 4 mg PO TID PRN (Reason: nausea and vomiting) Qty: 60 1RF alprazolam 1 mg tablet 1 mg PO BID PRN (Reason: anxiety) Qty: 60 3RF cetirizine 10 mg tablet See Rx Instructions .ROUTE .COMPLEX Qty: 90 1RF Dose Instruction: TAKE ONE TABLET BY MOUTH EVERY DAY FOR FOR ALLERGY SYMPTOMS Rx Instructions: TAKE ONE TABLET BY MOUTH EVERY DAY FOR FOR ALLERGY SYMPTOMS ibuprofen 800 mg tablet 800 mg PO BID PRN (Reason: headache) Qty: 60 6RF Ajovy Autoinjector 225 mg/1.5 mL auto-injector 225 mg SQ QMONTH Qty: 1.5 4RF Rx Instructions: Inject monthly as prescribed prednisone 20 mg tablet 20 mg PO DAILY Qty: 10 1RF ketorolac 10 mg tablet 10 mg PO Q8H PRN (Reason: migraine headache) Qty: 15 3RF denosumab 60 MG/ML syringe 60 mg SQ [id number] Referrals Follow up/Referrals: Case Pappas MD [Primary Care Provider] - See instructions Activity Restrictions/Add. Instructions Additional Instructions/Restrictions: covid/flu swab was sent to lab, call tomorrow for results. self isolate until test results are known to be negative No sign of a bacterial infection. Likely viral. Viruses can take 7-14 days to run their course. Nasal saline and bulb syringe or nose Celena to remove nasal drainage to help with nasal congestion. Hard to eat, drink, sleep with nasal congestion so important to keep this cleaned out. Monitor temp. Tylenol or Motrin as needed for pain or fever Encourage fluids, water, Gatorade, Powerade, Pedialyte if infant/toddler/child Warm salt water gargles Warm fluids Sore throat lozenges Sleep elevated Humidifier/vaporizer Follow-up immediately for new or worsening symptoms or no noticeable improvement over the next 48-72 hours. Clinical Impressions Clinical Impression: Upper respiratory infection, viral, Exposure to COVID-19 virus, Vasovagal syncope Stand Alone Forms Stand Alone Forms: Work/School Release Instructions Patient Instructions: DI for Syncope in Adults (Fainting), DI for COVID-19 (Suspected or Confirmed ) Discharge ED Provider: Erik Hook Syncope HPI General Chief Complaint: Syncope Stated Complaint: sore throat, cough, exposed to covid Time Seen by Provider: 07/14/22 20:03 Mode of Arrival: Ambulatory Source of Information: Patient, Spouse and Medical Record Limitations: No Limitations Description of Symptoms (Recalled from ER Triage Doc. by RN): c/o syncope and migrane head ache transfer from [facility] History of Present Illness HPI narrative: pt with fever and achey with sore throat w/o rash with recent dx of covid-19 complaint: almost passed out Onset (ago): hour(s) Witnessed: yes - by bystander Context: standing up Current symptoms: lightheaded Related Data Home Medications Medication Instructions Recorded Confirmed denosumab 60 mg/mL subcutaneous 60 mg SQ Q6MO
--- NOTE | 2022-07-14 21:37 | PC.NURSE ---
Rechecked pt condition. Pt advised, My head feels about the same Rn notified.
[2022-07-14 22:28] VITALS: BP 124/78; PULSE 90; RESP 18; TEMP 37.1; O2SAT 99
== END 2022-07-14 22:30 | disposition home or self-care (01) ==
LOC: UTC 20:16 → ER 20:17
PROVIDERS: Nurse Practitioner Family; Emergency Provider Emergency Medicine; PCP Family Medicine
DX: U07.1 COVID-19 (principal); R55 Syncope and collapse; J02.9 Acute pharyngitis, unspecified; R11.2 Nausea with vomiting, unspecified; R19.7 Diarrhea, unspecified; N94.10 Unspecified dyspareunia; G25.81 Restless legs syndrome; J32.9 Chronic sinusitis, unspecified; F32.A Depression, unspecified; F41.9 Anxiety disorder, unspecified; Z79.1 Long term (current) use of non-steroidal anti-inflammatories (NSAID); Z79.51 Long term (current) use of inhaled steroids; Z79.52 Long term (current) use of systemic steroids; Z79.899 Other long term (current) drug therapy; Z88.2 Allergy status to sulfonamides; Z88.5 Allergy status to narcotic agent; Z88.8 Allergy status to other drugs, medicaments and biological substances; Z82.49 Family history of ischemic heart disease and other diseases of the circulatory system; Z83.49 Family history of other endocrine, nutritional and metabolic diseases; Z83.3 Family history of diabetes mellitus; Z80.9 Family history of malignant neoplasm, unspecified; Z81.1 Family history of alcohol abuse and dependence
CPT/HCPCS: 96374; 96375; 99284; C9803; U0003; U0005

== ENCOUNTER 2022-08-02 18:43 | Emergency (ER) | payer BC, SELFPAY ==
[2022-08-02 21:03] VITALS: BP 0/0; PULSE 0; RESP 0; TEMP -17.7; TEMP 0; O2SAT 0
--- NOTE | 2022-08-02 21:03 | PC.NURSE ---
pt left without being seen from the ed
== END 2022-08-02 21:06 | disposition left against medical advice (07) ==
LOC: ER 19:32
PROVIDERS: Emergency Provider Emergency Medicine; PCP Family Medicine
DX: R10.9 Unspecified abdominal pain (principal); R11.0 Nausea; R51.9 Headache, unspecified; G25.81 Restless legs syndrome; F32.A Depression, unspecified; F41.9 Anxiety disorder, unspecified; Z88.2 Allergy status to sulfonamides; Z88.5 Allergy status to narcotic agent; Z88.8 Allergy status to other drugs, medicaments and biological substances; Z79.51 Long term (current) use of inhaled steroids; Z79.52 Long term (current) use of systemic steroids; Z79.890 Hormone replacement therapy; Z79.899 Other long term (current) drug therapy; Z53.21 Procedure and treatment not carried out due to patient leaving prior to being seen by health care provider; Z82.49 Family history of ischemic heart disease and other diseases of the circulatory system; Z81.1 Family history of alcohol abuse and dependence; Z83.438 Family history of other disorder of lipoprotein metabolism and other lipidemia; Z83.3 Family history of diabetes mellitus; Z80.9 Family history of malignant neoplasm, unspecified
CPT/HCPCS: 99211

== ENCOUNTER 2022-10-01 08:00 | Outpatient (RCR) | payer BC, SELFPAY ==
--- NOTE | 2022-09-25 09:15 | HMH.PTOPEV ---
PT Outpatient Evaluation Rehab PT Outpatient Evaluation Start: 09/25/22 07:56 Freq: Status: Active Protocol: Document 09/25/22 07:56 DAKSHA (Rec: 09/25/22 09:06 DAKSHA [id number]) E-signed By Carmen Courtney, PT Outpatient Therapy Subjective History Subjective History Pt is a 47 y/o female that reports chronic neck pain and headaches for 3 years. Pt reports neck pain is worse on the left compared to the right . Pt reports pain is located in the posterior occipital region and radiates to the top of her shoulders. Pt reports headaches occur 2x/week usually and the most recent has lasted for 3 days. Pt reports her neck feels locked when she turns to the left which excaerbates symptoms. Pt also reports infrequent paresthesia of the right thumb and index finger and tightness of the right forearm , denies LUE paresthesia. Pt denies having recent imaging. Pt reports she had a head/neck MRA in 2020 due to tinnitus in the right ear, states these symptoms have persisted sine and worsen with headache. Pt states she notices her sodium and caffeine intake also alter headache frequency/intensity. Pt reports she had a retina detachment surgery of the right eye in December of 2021 which also seemed to worsen headache symptoms due to required laying on the right side for 3 weeks. Pt reports she has been performing neck stretches and neck mobility exercises without relief. Pt reports she has had dry needling and mechanical traction in the past with relief. 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
== END 2022-10-01 08:05 | disposition home or self-care (01) ==
LOC: PT 08:00
PROVIDERS: PCP Family Medicine; Visit Provider Family Medicine
DX: G43.119 Migraine with aura, intractable, without status migrainosus (principal)
CPT/HCPCS: 20560; 97012; 97140; 97163

== ENCOUNTER 2023-07-25 07:59 | Emergency (ER) | payer BC, SELFPAY ==
[2023-07-25 08:00] VITALS: BP 111/72; PULSE 108; RESP 18; TEMP 36.9; O2SAT 97; BMI 28.0
--- NOTE | 2023-07-25 08:23 | EXP.UTC ---
Discharge Plan Disposition Patient Disposition: Home, Self-Care Condition: Good Prescriptions Prescriptions: New azithromycin [Zithromax Z-Dante] 250 mg tablet See Rx Instructions .ROUTE .COMPLEX 5 Days Qty: 6 0RF Rx Instructions: For 250 mg dose pack: take 500 mg today (day 1), then 250 mg for 4 days (days 2-5) benzonatate 100 mg capsule 100 mg PO TID PRN (Reason: cough) Qty: 30 0RF methylprednisolone [Medrol (Dante)] 4 mg tablets,dose pack See Rx Instructions .Route .COMPLEX 6 Days Qty: 21 0RF Rx Instructions: taper pack; No Action esomeprazole magnesium 20 mg capsule,delayed release(DR/EC) 20 mg PO DAILY alprazolam 1 mg tablet 1 mg PO BID PRN (Reason: anxiety) Qty: 60 3RF sertraline [Zoloft] 100 mg tablet 100 mg PO DAILY Qty: 90 3RF cyclobenzaprine 10 mg tablet 10 mg PO TID PRN (Reason: muscle spasm) Qty: 60 0RF Ubrelvy 100 mg tablet 100 mg PO ONCE PRN (Reason: migraine headache) Qty: 10 6RF Rx Instructions: as needed for migraine, max amount 2 tabs/day or 4 tabs/week Ajovy Autoinjector 225 mg/1.5 mL auto-injector 225 mg SQ QMONTH Qty: 1.5 4RF Rx Instructions: Inject monthly as prescribed levothyroxine [Synthroid] 88 mcg tablet See Rx Instructions .ROUTE .COMPLEX Qty: 90 1RF Dose Instruction: TAKE 1 TABLET BY MOUTH EVERY DAY Rx Instructions: TAKE 1 TABLET BY MOUTH EVERY DAY spironolactone 50 mg tablet See Rx Instructions .ROUTE .COMPLEX Qty: 90 1RF Dose Instruction: TAKE 1 TABLET BY MOUTH EVERY DAY Rx Instructions: TAKE 1 TABLET BY MOUTH EVERY DAY bupropion HCl 300 mg tablet extended release 24 hr See Rx Instructions .ROUTE .COMPLEX Qty: 90 1RF Dose Instruction: TAKE 1 TABLET BY MOUTH EVERY DAY FOR DEPRESSION Rx Instructions: TAKE 1 TABLET BY MOUTH EVERY DAY FOR DEPRESSION fluticasone propionate 50 mcg/actuation spray,suspension See Rx Instructions .ROUTE .COMPLEX Qty: 16 2RF Dose Instruction: instill 1 SPRAY IN EACH NOSTRIL ONCE DAILY Rx Instructions: instill 1 SPRAY IN EACH NOSTRIL ONCE DAILY estradiol 2 mg tablet 2 mg PO DAILY Qty: 90 3RF ibuprofen 800 mg tablet 800 mg PO BID PRN (Reason: headache) Qty: 60 6RF Prolia 60 mg/mL syringe 60 mg SQ [id number] Qty: 1 6RF ondansetron 4 mg tablet,disintegrating 4 mg PO Q8H PRN (Reason: nausea and vomiting) Qty: 90 0RF ondansetron HCl 4 mg tablet See Rx Instructions .ROUTE .COMPLEX Qty: 60 1RF Dose Instruction: TAKE 1 TABLET ORALLY THREE TIMES A DAY NEEDED FOR NAUSEA AND VOMITING Rx Instructions: TAKE 1 TABLET ORALLY THREE TIMES A DAY NEEDED FOR NAUSEA AND VOMITING cetirizine 10 mg tablet See Rx Instructions .ROUTE .COMPLEX Qty: 90 1RF Dose Instruction: TAKE ONE TABLET BY MOUTH EVERY DAY FOR FOR ALLERGY SYMPTOMS Rx Instructions: TAKE ONE TABLET BY MOUTH EVERY DAY FOR FOR ALLERGY SYMPTOMS ketorolac 10 mg tablet 10 mg PO Q8H PRN (Reason: migraine headache) Qty: 15 3RF hydrocodone-acetaminophen 5-325 mg tablet 1 tab PO BID PRN (Reason: pain) Qty: 20 0RF denosumab 60 MG/ML syringe 60 mg SQ [id number] Referrals Follow up/Referrals: Case Pappas MD [Primary Care Provider] - See instructions Activity Restrictions/Add. Instructions Additional Instructions/Restrictions: *Monitor Temp, Over the counter Motrin or Tylenol as directed/as needed Tylenol every 4 hours and Motrin every 6 hours (as long as your family doctor has told you that you can take it) for fever or pain. and straight to ER if unable to lower temp less than 101.0 after medication given *Warm salt water gargles may help to soothe the throat *Throat Lozenges? *Warm fluids like tea with honey may help to soothe the throat? *Sleep elevated *Humidifier/Vaporizer Follow up IMMEDIATELY for new or worsening symptoms or no Noticeable improvement over the
[2023-07-25 08:55] VITALS: BP 111/72; PULSE 108; RESP 18; TEMP 36.9; O2SAT 97
[2023-07-25 09:55] LABS: Adenovirus,PCR Not Detected (NotDetected); Bordetella Pertussis Not Detected (NotDetected); Chlamydophila Pneumoniae, PCR Not Detected (NotDetected); Coronavirus 19, PCR Not Detected (NotDetected); Coronavirus 229E Not Detected (NotDetected); Coronavirus NL63 Not Detected (NotDetected); Coronavirus OC43 Not Detected (NotDetected); Coronovirus HKU1,PCR Not Detected (NotDetected); Human Metapneumovirus Not Detected (NotDetected); Influenza A, PCR Not Detected (NotDetected); Influenza AH1, 2009 Not Detected (NotDetected); Influenza AH1, PCR Not Detected (NotDetected); Influenza AH3,PCR Not Detected (NotDetected); Influenza B, PCR Not Detected (NotDetected); Mycoplasma Pneumoniae, PCR Not Detected (NotDetected); Parainfluenza 1, PCR Not Detected (NotDetected); Parainfluenza 2, PCR Not Detected (NotDetected); Parainfluenza 3, PCR Not Detected (NotDetected); Parainfluenza 4, PCR Not Detected (NotDetected); Respiratory Syncytial Virus Not Detected (NotDetected); Rhinovirus/Enterovirus Not Detected (NotDetected)
== END 2023-07-25 09:08 | disposition home or self-care (01) ==
PROVIDERS: Emergency Provider Nurse Practitioner; PCP Family Medicine
DX: J20.9 Acute bronchitis, unspecified (principal); J01.90 Acute sinusitis, unspecified; R50.9 Fever, unspecified; R11.0 Nausea; R05.9 Cough, unspecified; R09.89 Other specified symptoms and signs involving the circulatory and respiratory systems; R09.81 Nasal congestion; R09.82 Postnasal drip; R07.0 Pain in throat; Z20.822 Contact with and (suspected) exposure to COVID-19
CPT/HCPCS: 87581; 87632; 87635; 87798; 96372; 99212; 99214; G0463; J0696

== ENCOUNTER 2023-08-28 08:54 | Emergency (ER) | payer BC, SELFPAY ==
[2023-08-28 09:05] VITALS: BP 126/75; PULSE 93; RESP 18; TEMP 37.3; O2SAT 99; BMI 27.3
--- NOTE | 2023-08-28 09:19 | EXP.UTC ---
Discharge Plan Disposition Patient Disposition: Home, Self-Care Condition: Good Prescriptions Prescriptions: No Action esomeprazole magnesium 20 mg capsule,delayed release(DR/EC) 20 mg PO DAILY alprazolam 1 mg tablet 1 mg PO BID PRN (Reason: anxiety) Qty: 60 3RF sertraline [Zoloft] 100 mg tablet 100 mg PO DAILY Qty: 90 3RF cyclobenzaprine 10 mg tablet 10 mg PO TID PRN (Reason: muscle spasm) Qty: 60 0RF Ubrelvy 100 mg tablet 100 mg PO ONCE PRN (Reason: migraine headache) Qty: 10 6RF Rx Instructions: as needed for migraine, max amount 2 tabs/day or 4 tabs/week Ajovy Autoinjector 225 mg/1.5 mL auto-injector 225 mg SQ QMONTH Qty: 1.5 4RF Rx Instructions: Inject monthly as prescribed fluticasone propionate 50 mcg/actuation spray,suspension See Rx Instructions .ROUTE .COMPLEX Qty: 16 2RF Dose Instruction: instill 1 SPRAY IN EACH NOSTRIL ONCE DAILY Rx Instructions: instill 1 SPRAY IN EACH NOSTRIL ONCE DAILY estradiol 2 mg tablet 2 mg PO DAILY Qty: 90 3RF ibuprofen 800 mg tablet 800 mg PO BID PRN (Reason: headache) Qty: 60 6RF Prolia 60 mg/mL syringe 60 mg SQ [id number] Qty: 1 6RF ondansetron 4 mg tablet,disintegrating 4 mg PO Q8H PRN (Reason: nausea and vomiting) Qty: 90 0RF ondansetron HCl 4 mg tablet See Rx Instructions .ROUTE .COMPLEX Qty: 60 1RF Dose Instruction: TAKE 1 TABLET ORALLY THREE TIMES A DAY NEEDED FOR NAUSEA AND VOMITING Rx Instructions: TAKE 1 TABLET ORALLY THREE TIMES A DAY NEEDED FOR NAUSEA AND VOMITING cetirizine 10 mg tablet See Rx Instructions .ROUTE .COMPLEX Qty: 90 1RF Dose Instruction: TAKE ONE TABLET BY MOUTH EVERY DAY FOR FOR ALLERGY SYMPTOMS Rx Instructions: TAKE ONE TABLET BY MOUTH EVERY DAY FOR FOR ALLERGY SYMPTOMS ketorolac 10 mg tablet 10 mg PO Q8H PRN (Reason: migraine headache) Qty: 15 3RF hydrocodone-acetaminophen 5-325 mg tablet 1 tab PO BID PRN (Reason: pain) Qty: 20 0RF spironolactone 50 mg tablet See Rx Instructions .ROUTE .COMPLEX Qty: 90 0RF Dose Instruction: TAKE 1 TABLET BY MOUTH EVERY DAY Rx Instructions: TAKE 1 TABLET BY MOUTH EVERY DAY levothyroxine [Synthroid] 88 mcg tablet See Rx Instructions .ROUTE .COMPLEX Qty: 90 0RF Dose Instruction: TAKE 1 TABLET BY MOUTH EVERY DAY Rx Instructions: TAKE 1 TABLET BY MOUTH EVERY DAY bupropion HCl 300 mg tablet extended release 24 hr See Rx Instructions .ROUTE .COMPLEX Qty: 90 0RF Dose Instruction: TAKE 1 TABLET BY MOUTH EVERY DAY FOR DEPRESSION Rx Instructions: TAKE 1 TABLET BY MOUTH EVERY DAY FOR DEPRESSION denosumab 60 MG/ML syringe 60 mg SQ [id number] azithromycin [Zithromax Z-Dante] 250 mg tablet See Rx Instructions .ROUTE .COMPLEX 5 Days Qty: 6 0RF Rx Instructions: For 250 mg dose pack: take 500 mg today (day 1), then 250 mg for 4 days (days 2-5) benzonatate 100 mg capsule 100 mg PO TID PRN (Reason: cough) Qty: 30 0RF methylprednisolone [Medrol (Dante)] 4 mg tablets,dose pack See Rx Instructions .Route .COMPLEX 6 Days Qty: 21 0RF Rx Instructions: taper pack; Referrals Follow up/Referrals: Case Pappas MD [Primary Care Provider] - See instructions Activity Restrictions/Add. Instructions Additional Instructions/Restrictions: *Monitor Temp, Over the counter Motrin or Tylenol as directed/as needed Tylenol every 4 hours and Motrin every 6 hours (as long as your family doctor has told you that you can take it) for fever or pain. and straight to ER if unable to lower temp less than 101.0 after medication given Rest Plenty of fluids to drink *Sleep elevated *Humidifier/Vaporizer Follow up IMMEDIATELY for new or worsening symptoms or no Noticeable improvement over the next 48-72 hours. 911 for difficulty breathing or swallowing You were tested for today for COVID19 your test result should be back in the next 24-48 hours, you check your results on the [facility] if your COVID test is positive you must Quarantine for 5 days Clinical Impressions Clinical Impression: Viral syndrome Stand Alone Forms Stand Alone Forms: Work/School Release Instructions Patient Instructions: DI for Viral Syndrome Discharge ED Provider: Britta De Los [place] [facility] [place] General Stated complaint: chills baca ba nausea Mode of Arrival: Ambulatory Source of Information: Patient Limitations: No Limitations Time Seen by Provider: 08/28/23 09:19 Description of Symptoms (Recalled from Triage Doc. by RN): PATIENT C/O BODY ACHES, CHILLS, HEADACHE, AND NAUSEA SINCE YESTERDAY. RECENTLY EXPOSED TO COVID HEENT Symptoms (Recalled from RN notes): Yes Resp Symptoms (Recalled from RN notes): No Skin Symptoms (Recalled from RN notes): No MS Symptoms (Recalled from RN notes): No Functional Status (Recalled from RN notes): WNL History of Present Illness Provider Complaint: Patient states that her daughter tested positive for COVID on Friday and she started with symptoms yesterday States that she is having sinus congestion, body aches, chills, headache, nausea and feeling a little dizzy on and off same symptoms she had when she had COVID before so she wanted to get tested Related Data Home Medications Medication Instructions Recorded Confirmed denosumab 60 mg/mL subcutaneous 60 mg SQ [id number] oestopenia 02/27/21 02/14/23 syringe esomeprazole magnesium 20 mg 20 mg PO DAILY 06/24/22 02/14/23 capsule,delayed release Previous Rx's Medication Instructions Recorded ubrogepant 100 mg tablet (Ubrelvy) 100 mg PO ONCE PRN migraine 07/09/21 headache #10 tabs fremanezumab-vfrm 225 mg/1.5 mL 225 mg (1.5 mL) SQ QMONTH Migraine 07/24/22 subcutaneous auto-injector (Ajovy) Headache #1.5 mL fluticasone propionate 50 See Rx Instructions .Route 02/05/23 mcg/actuation nasal .COMPLEX #16 grams spray,suspension alprazolam 1 mg tablet 1 mg PO BID PRN anxiety #60 tabs 02/14/23 cyclobenzaprine 10 mg tablet 10 mg PO TID PRN muscle spasm #60 02/14/23 tabs sertraline 100 mg tablet (Zoloft) 100 mg PO DAILY #90 tabs 02/14/23 estradiol 2 mg tablet 2 mg PO DAILY horomones #90 tabs 02/25/23 ibuprofen 800 mg tablet 800 mg PO BID PRN headache #60 tabs 03/07/23 denosumab 60 mg/mL subcutaneous 60 mg SQ [id number] #1 mL 04/29/23 syringe (Prolia) ondansetron 4 mg disintegrating 4 mg PO Q8H PRN nausea and 05/13/23 tablet vomiting #90 tabs ondansetron HCl 4 mg tablet See Rx Instructions .Route 06/25/23 .COMPLEX #60 tabs cetirizine 10 mg tablet See Rx Instructions .Route 07/09/23 .COMPLEX #90 tabs ketorolac 10 mg tablet 10 mg PO Q8H PRN migraine headache 07/09/23 #15 tabs hydrocodone 5 mg-acetaminophen 325 1 tab PO BID PRN pain #20 tabs 07/11/23 mg tablet azithromycin 250 mg tablet See Rx Instructions PO .COMPLEX 5 07/25/23 (Zithromax Z-Dante) days #6 tabs benzonatate 100 mg capsule 100 mg PO TID PRN cough #30 caps 07/25/23 methylprednisolone 4 mg tablets in See Rx Instructions .Route 07/25/23 a dose pack (Medrol (Adnte)) .COMPLEX 6 days #21 tabs Synthroid 88 mcg tablet See Rx Instructions .Route 08/01/23 (levothyroxine) .COMPLEX #90 tabs bupropion HCl 300 mg 24 hr tablet, See Rx Instructions .Route 08/01/23 extended release .COMPLEX #90 tabs spironolactone 50 mg tablet See Rx Instructions .Route 08/01/23 .COMPLEX #90 tabs Allergies Allergy/AdvReac Type Severity Reaction Status Date / Time codeine [CODEINE] Allergy Unknown VOMITING, Verified 02/14/23 14:35 RASH metoclopramide [From REGLAN] Allergy Unknown SEIZURES Verified 02/14/23 14:35 oxycodone [From PERCOCET] Allergy Unknown NA-NAUSEA/V Verified 02/14/23 14:35 OMITING prochlorperazine Allergy Unknown NA-HALLUCIN Verified 02/14/23 14:35 ATIONS Sulfa (Sulfonamide Allergy Unknown I-RASH Verified 02/14/23 14:35 Antibiotics) [SULFA (SULFONAMIDE ANTIBIOTICS)] alendronate sodium AdvReac Intermediate Abdominal Verified 02/14/23 14:35 [From Fosamax] Pain salicylic acid AdvReac Verified 02/14/23 14:35 [From Compound W] Worker's Comp Is this a Worker's Comp case?: No [facility] Disclaimer: The information contained in this section may have been updated after the patient was seen, as this information can be updated by other users. Medical History (Updated 08/28/23 @ 09:33 by Britta De Los Santos APRN) Anxiety Depression Diarrhea Dyspareunia Pelvic floor dysfunction in female RLS (restless legs syndrome) Sinusitis Surgical History (Updated 02/17/23 @ 13:22 by Case Pappas MD) H/O hysterectomy with oophorectomy Hx of appendectomy Hx of cholecystectomy Hx of sinus surgery Hx of tubal ligation Family History Other Alcoholism Cancer Diabetes Hypertension Stroke Thyroid disorder Social History Smoking Status: Never smoker alcohol intake: current substance use type: denies use current occupational status: employed Travel in the last 8 weeks: None household members: spouse housing: house number of children: 2 caffeine: Yes ROS Obtained: Yes All systems reviewed & no additional complaints except as documented and Yes Systems reviewed as appropriate & no additional complaints except as documented Constitutional Constitutional: Reports system reviewed and no additional complaints, except as documented, Reports as per HPI, Reports body ache, Reports chills, Reports fatigue and Reports headache(s) ENT Ears, Nose, Mouth, and Throat: Reports system reviewed and no additional complaints, except as documented, Reports as per HPI, Reports dizziness, Reports headache(s), Reports nasal congestion and Reports nasal discharge Cardiovascular Cardiovascular: Reports system reviewed and no additional complaints, except as documented and Reports as per HPI Respiratory Respiratory: Reports system reviewed and no additional complaints, except as documented, Reports as per HPI and Reports cough Neurologic Neurologic: Reports dizziness and Reports headache(s) Endocrine Endocrine: Reports fatigue Physical Exam General General appearance: alert and in no apparent distress ENT ENT exam: Present mucous membranes moist Expanded ENT Exam Nose exam: Absent sinus tenderness Respiratory Respiratory exam: Present normal lung sounds bilaterally; Absent respiratory distress, wheezes or stridor Cardiovascular Cardiovascular exam: Present regular rate, normal rhythm and normal heart sounds Neurological Exam Neurological exam: Present alert, oriented X3 and normal gait Medical Decision Making Teo Inquiry Pt receiving controlled substance: No Teo was queried for this patient: No Vital Signs: 08/28/23 09:05 Temperature 99.1 F Temperature Source Oral Pulse Rate [Left Brachial] 93 H Respiratory Rate 18 Blood Pressure [Left Arm] 126/75 Blood Pressure Mean [Left Arm] 92 Blood Pressure Source [Left Arm] Automatic Cuff Blood Pressure Position [Left Arm] Sitting 02 Sat by Pulse Oximetry 99 Oxygen Delivery Method Room Air Lab Data Lab results reviewed: Yes I reviewed the patient's lab results. Orders (Tests/Meds): ORDERS Category Date Time Status Covid-19 Nasal PCR ([facility]) Routine Lab 08/28/23 09:40 Received
[2023-08-28 09:34] VITALS: BP 126/75; PULSE 93; RESP 18; TEMP 37.3; O2SAT 99
[2023-08-28 09:34] LABS: UTC Influenza A Antigen Negative (Negative)
[2023-08-28 09:35] LABS: UTC Influenza B Antigen Negative (Negative)
== END 2023-08-28 09:36 | disposition home or self-care (01) ==
PROVIDERS: Emergency Provider Nurse Practitioner; PCP Family Medicine
DX: R51.9 Headache, unspecified (principal); R68.83 Chills (without fever); R11.0 Nausea; R09.81 Nasal congestion; R42 Dizziness and giddiness; B34.9 Viral infection, unspecified
CPT/HCPCS: 87635; 87804; 99212; 99213; G0463

== ENCOUNTER 2024-02-29 15:32 | Emergency (ER) | payer BC, SELFPAY ==
[2024-02-29 15:33] VITALS: BP 110/90; PULSE 80; RESP 18; TEMP 36.5; O2SAT 100; BMI 29.6
--- NOTE | 2024-02-29 15:37 | PC.NURSE ---
DR CERON AT BEDSIDE
--- NOTE | 2024-02-29 15:45 | HMH.EDGENADL ---
Discharge Plan Disposition Patient Disposition: Home, Self-Care Condition: Good Chief Complaint: Headache Prescriptions Prescriptions: No Action esomeprazole magnesium 20 mg capsule,delayed release(DR/EC) 20 mg PO DAILY cyclobenzaprine 10 mg tablet 10 mg PO TID PRN (Reason: muscle spasm) Qty: 60 0RF ketorolac 10 mg tablet 10 mg PO Q8H PRN (Reason: migraine headache) Qty: 90 3RF Mounjaro 2.5 mg/0.5 mL pen injector 2.5 mg SQ WEEKLY Qty: 6 0RF Ubrelvy 100 mg tablet 100 mg PO ONCE PRN (Reason: migraine headache) Qty: 10 6RF Rx Instructions: as needed for migraine, max amount 2 tabs/day or 4 tabs/week Ajovy Autoinjector 225 mg/1.5 mL auto-injector 225 mg SQ QMONTH Qty: 1.5 4RF Rx Instructions: Inject monthly as prescribed estradiol 2 mg tablet 2 mg PO DAILY Qty: 90 3RF Prolia 60 mg/mL syringe 60 mg SQ [id number] Qty: 1 6RF ibuprofen 800 mg tablet See Rx Instructions .ROUTE .COMPLEX Qty: 60 6RF Dose Instruction: TAKE 1 TABLET BY MOUTH TWICE A DAY NEEDED FOR HEADACHE Rx Instructions: TAKE 1 TABLET BY MOUTH TWICE A DAY NEEDED FOR HEADACHE ondansetron 4 mg tablet,disintegrating 4 mg PO Q8H PRN (Reason: nausea and vomiting) Qty: 90 0RF metformin 500 mg tablet 500 mg PO BID Qty: 180 3RF famotidine [Pepcid] 40 mg tablet 40 mg PO BID Qty: 180 3RF teriparatide [Forteo] 20 mcg/dose (600mcg/2.4mL) pen injector 20 mcg SQ DAILY Qty: 2.4 6RF cetirizine 10 mg tablet See Rx Instructions .ROUTE .COMPLEX Qty: 90 1RF Dose Instruction: TAKE ONE TABLET BY MOUTH EVERY DAY FOR FOR ALLERGY SYMPTOMS Rx Instructions: TAKE ONE TABLET BY MOUTH EVERY DAY FOR FOR ALLERGY SYMPTOMS prednisone 20 mg tablet 20 mg PO DAILY Qty: 30 1RF levothyroxine [Synthroid] 88 mcg tablet See Rx Instructions .ROUTE .COMPLEX Qty: 90 0RF Dose Instruction: TAKE 1 TABLET BY MOUTH EVERY DAY Rx Instructions: TAKE 1 TABLET BY MOUTH EVERY DAY valacyclovir 1 gram tablet 1,000 mg PO DAILY PRN (Reason: fever blisters) Qty: 30 2RF spironolactone 50 mg tablet See Rx Instructions .ROUTE .COMPLEX Qty: 90 0RF Dose Instruction: TAKE 1 TABLET BY MOUTH EVERY DAY Rx Instructions: TAKE 1 TABLET BY MOUTH EVERY DAY hydrocodone-acetaminophen 5-325 mg tablet 1 tab PO BID PRN (Reason: pain) Qty: 20 0RF alprazolam 1 mg tablet 1 mg PO BID PRN (Reason: anxiety) Qty: 60 3RF bupropion HCl 300 mg tablet extended release 24 hr See Rx Instructions .ROUTE .COMPLEX Qty: 90 0RF Dose Instruction: TAKE 1 TABLET BY MOUTH EVERY DAY FOR DEPRESSION Rx Instructions: TAKE 1 TABLET BY MOUTH EVERY DAY FOR DEPRESSION hydroxyzine HCl 50 mg tablet 50 mg PO BID PRN (Reason: itching) Qty: 60 0RF fluticasone propionate 50 mcg/actuation spray,suspension See Rx Instructions .ROUTE .COMPLEX Qty: 16 2RF Dose Instruction: instill 1 SPRAY IN EACH NOSTRIL ONCE DAILY Rx Instructions: instill 1 SPRAY IN EACH NOSTRIL ONCE DAILY Referrals Follow up/Referrals: Case Pappas MD [Primary Care Provider] - See instructions Activity Restrictions/Add. Instructions Additional Instructions/Restrictions: Your COVID and flu test was negative here in the emergency department today. Your symptoms are likely in the setting of a viral illness and symptomatic management such as alternating Tylenol and Ibuprofen is recommended. Please follow-up closely with your primary care provider for continued management and return for any new or worsening symptoms. Clinical Impressions Clinical Impression: Acute viral syndrome Migraine Qualifiers: Migraine type: unspecified Status migrainosus presence: without status migrainosus Intractability: intractable Qualified Code(s): G43.919 - Migraine, unspecified, intractable, without status migrainosus Instructions Patient Instructions: DI for Migraine, DI for Viral Upper Respiratory Infection -- Adult Print Language Print Language: Indonesian Discharge ED Provider: Cierra Del Toro General Adult HPI General Chief complaint: Headache Stated complaint: head pain cough weakness Time Seen by Provider: 02/29/24 15:34 History of Present Illness HPI narrative: Patient is a 48-year-old female with past medical history migraines, chronic thyroid disease, anxiety and depression presenting with headache for 2 days as well as some cough and congestion. She states that she gets migraines and this feels like a bad migraine but is not the worst she has ever had and is consistent with her prior migraines. She did take a Ubrelvy 2 hours prior to arrival. She does also note some cough and congestion but no known sick contacts and is worried that she may have COVID. She does note that she has a young grandchild at home she does not want to expose if she does have COVID. She did also realistically start levthyronine by her case management coordinator for her thyroid disease last Friday. Denies any known fevers shortness of breath, chest pain, abdominal pain. Related Data Home Medications ?Medication ?Instructions ?Recorded ?Confirmed esomeprazole magnesium 20 mg 20 mg PO DAILY 06/24/22 10/10/23 capsule,delayed release Previous Rx's ?Medication ?Instructions ?Recorded ubrogepant 100 mg tablet (Ubrelvy) 100 mg PO ONCE PRN migraine 07/09/21 headache #10 tabs fremanezumab-vfrm 225 mg/1.5 mL 225 mg (1.5 mL) SQ QMONTH Migraine 07/24/22 subcutaneous auto-injector (Ajovy) Headache #1.5 mL cyclobenzaprine 10 mg tablet 10 mg PO TID PRN muscle spasm #60 02/14/23 tabs estradiol 2 mg tablet 2 mg PO DAILY horomones #90 tabs 02/25/23 denosumab 60 mg/mL subcutaneous 60 mg SQ [id number] #1 mL 04/29/23 syringe (Prolia) ketorolac 10 mg tablet 10 mg PO Q8H PRN migraine headache 10/10/23 #90 tabs tirzepatide 2.5 mg/0.5 mL 2.5 mg (0.5 mL) SQ WEEKLY #6 mL 10/10/23 subcutaneous pen injector (Mounjaro) ibuprofen 800 mg tablet See Rx Instructions .Route 11/18/23 .COMPLEX #60 tabs ondansetron 4 mg disintegrating 4 mg PO Q8H PRN nausea and 12/08/23 tablet vomiting #90 tabs metformin 500 mg tablet 500 mg PO BID #180 tabs 12/10/23 famotidine 40 mg tablet (Pepcid) 40 mg PO BID #180 tabs 12/11/23 teriparatide 20 mcg/dose (600 20 mcg (0.08 mL) SQ DAILY #2.4 mL 01/02/24 mcg/2.4 mL) subcutaneous pen injector (Forteo) cetirizine 10 mg tablet See Rx Instructions .Route 01/05/24 .COMPLEX #90 tabs Synthroid 88 mcg tablet See Rx Instructions .Route 01/13/24 (levothyroxine) .COMPLEX #90 tabs prednisone 20 mg tablet 20 mg PO DAILY #30 tabs 01/13/24 valacyclovir 1 gram tablet 1,000 mg PO DAILY PRN fever 01/14/24 blisters #30 tabs spironolactone 50 mg tablet See Rx Instructions .Route 01/20/24 .COMPLEX #90 tabs hydrocodone 5 mg-acetaminophen 325 1 tab PO BID PRN pain #20 tabs 01/22/24 mg tablet alprazolam 1 mg tablet 1 mg PO BID PRN anxiety #60 tabs 01/23/24 bupropion HCl 300 mg 24 hr tablet, See Rx Instructions .Route 01/28/24 extended release .COMPLEX #90 tabs hydroxyzine HCl 50 mg tablet 50 mg PO BID PRN itching #60 tabs 02/12/24 fluticasone propionate 50 See Rx Instructions .Route 02/19/24 mcg/actuation nasal .COMPLEX #16 grams spray,suspension Allergies Allergy/AdvReac Type Severity Reaction Status Date / Time codeine [CODEINE] Allergy Unknown VOMITING, Verified 10/10/23 09:48 RASH metoclopramide [From REGLAN] Allergy Unknown SEIZURES Verified 10/10/23 09:48 oxycodone [From PERCOCET] Allergy Unknown NA-NAUSEA/V Verified 10/10/23 09:48 OMITING prochlorperazine Allergy Unknown NA-HALLUCIN Verified 10/10/23 09:48 ATIONS Sulfa (Sulfonamide Allergy Unknown I-RASH Verified 10/10/23 09:48 Antibiotics) [SULFA (SULFONAMIDE ANTIBIOTICS)] alendronate sodium AdvReac Intermediate Abdominal Verified 10/10/23 09:48 [From Fosamax] Pain salicylic acid AdvReac Verified 10/10/23 09:48 [From Compound W] [facility] Disclaimer: The information contained in this section may have been updated after the patient was seen, as this information can be updated by other users. Medical History Dyspareunia Pelvic floor dysfunction in female RLS (restless legs syndrome) Depression Anxiety Sinusitis Diarrhea Surgical History Hx of sinus surgery Hx of appendectomy Hx of tubal ligation Hx of cholecystectomy H/O hysterectomy with oophorectomy Family History Other Alcoholism Cancer Diabetes Hypertension Stroke Thyroid disorder Social History Smoking Status: Never smoker alcohol intake: current alcohol intake frequency: holidays/special occasions only substance use type: denies use current occupational status: employed Travel in the last 8 weeks: None household members: spouse housing: house number of children: 2 caffeine: Yes ROS Obtained: Yes Systems reviewed as appropriate & no additional complaints except as documented Physical Exam General General appearance: alert and in no apparent distress Head Head exam: atraumatic and normocephalic Eye Eye exam: Present PERRL and EOMI Respiratory Respiratory exam: Present normal lung sounds bilaterally; Absent respiratory distress Cardiovascular Cardiovascular exam: Present regular rate and normal rhythm Extremities Exam Extremities exam: Present normal inspection Neurological Exam Neurological exam: Present alert and oriented X3 Skin Skin exam: Present warm and dry Medical Decision Making Medical Records Medical records reviewed: Yes I reviewed the patient's medical records. Teo Inquiry Pt receiving controlled substance: No Teo was queried for this patient: No Vital Signs: 02/29/24 15:33 02/29/24 15:46 Temperature 97.7 F Temperature Source Oral Pulse Rate 72 Pulse Rate [Radial] 80 Respiratory Rate 18 17 Blood Pressure 110/90 Blood Pressure [Left Arm] 110/90 Blood Pressure Mean [Left Arm] 96 Blood Pressure Source [Left Arm] Automatic Cuff Blood Pressure Position [Left Arm] Sitting 02 Sat by Pulse Oximetry 100 99 Oxygen Delivery Method Room Air Lab Data Lab results reviewed: Yes I reviewed the patient's lab results. Lab Results 02/29/24 15:40: SARS-CoV-2 (PCR) Not detected, Influenza A Untype (PCR) Not detected, Influenza Type B (PCR) Not detected Orders (Tests/Meds): ED MEDICATIONS Generic Name Dose Route Start Last Admin Trade Name Freq PRN Reason Stop Dose Admin Sodium Chloride 1,000 mls @ 999 mls/hr 02/29/24 17:03 02/29/24 17:10 Sod Chlor 0.9% 1000ml Bag IV 02/29/24 18:03 999 mls/hr .Q1H1M ONE Administration Discontinued Medications Generic Name Dose Route Start Last Admin Trade Name Julio Cesar PRN Reason Stop Dose Admin Acetaminophen 1,000 mg 02/29/24 15:42 02/29/24 16:05 Acetaminophen 500mg Tab PO 02/29/24 15:43 Not Given ONCE ONE Diphenhydramine HCl 50 mg 02/29/24 15:42 02/29/24 15:56 Diphenhydramine 50mg/Ml Vial IV 02/29/24 15:43 50 mg ONCE ONE Administration Sodium Chloride 1,000 mls @ 999 mls/hr 02/29/24 15:42 02/29/24 15:57 Sod Chlor 0.9% 1000ml Bag IV 02/29/24 16:42 999 mls/hr .Q1H1M ONE Administration Magnesium Sulfate 2 gm in 50 mls @ 50 mls/hr 02/29/24 15:42 02/29/24 15:56 Magnesium Sulfate 2gm/50ml Premix IV 02/29/24 16:41 50 mls/hr ONCE ONE Administration Ketorolac Tromethamine 15 mg 02/29/24 16:40 02/29/24 16:45 Ketorolac 30mg/Ml Vial IV 02/29/24 16:41 15 mg ONCE ONE Administration Ondansetron HCl 4 mg 02/29/24 15:42 02/29/24 15:56 Ondansetron 4mg/2ml Vial IV 02/29/24 15:43 4 mg ONCE ONE Administration Promethazine HCl 25 mg 02/29/24 16:40 02/29/24 16:45 Promethazine Hcl 25mg/Ml 1ml Vial IV 02/29/24 16:41 25 mg ONCE ONE Administration Sodium Chloride 25 ml 02/29/24 16:40 02/29/24 16:46 Sodium Chloride 0.9% 25ml Bag IV 02/29/24 16:41 Not Given ONCE ONE ORDERS Category Date Time Status Rapid PCR Covid and Flu A/B Stat Lab 02/29/24 15:40 Completed Medical Decision Narrative: Patient is a 48-year-old female with past medical history migraines, chronic thyroid disease, anxiety and depression presenting with headache, cough and congestion. Symptoms have been ongoing over the past 2 days with no known fevers, chest pain, shortness of breath, abdominal pain. She has no known sick contacts. Her exam is overall unremarkable and she is hemodynamically stable. She would like tested for COVID and this headache is consistent with her prior migraines and is not sudden onset or worst headache and we will therefore proceed with migraine cocktail and COVID testing this time. On initial reevaluation after 1 L normal saline, Zofran, Benadryl, magnesium patient notes only mild improvement. She notes that she is usually given Toradol and Compazine for her symptoms and though it is listed as an allergy she does not have any actual reaction to Compazine. Therefore given Toradol and Compazine as well. Her COVID test was negative which was discussed with patient and she did have some improvement in her symptoms. Discussed further care and patient does request a second liter of normal saline which was provided. Discussed that symptoms likely in the setting of a viral illness and recommended symptomatic management which patient is agreeable. Discharged in stable condition to follow-up with PCP. Critical Care Critical Care Time Critical Care Time: No
[2024-02-29 15:46] VITALS: BP 110/90; PULSE 72; RESP 17; O2SAT 99
[2024-02-29 15:49] LABS: Coronavirus 19, PCR Not Detected (NotDetected); Influenza A, PCR Not Detected (NotDetected); Influenza B, PCR Not Detected (NotDetected)
[2024-02-29] MEDS: ONDANSETRON 4MG/2ML VIAL 4 MG IV (15:56)
[2024-02-29] MEDS: MAGNESIUM SULFATE IN WATER 2 GM/50 ML PIGGYBACK IV (15:56)
[2024-02-29] MEDS: diphenhydrAMINE 50MG/ML VIAL 50 MG IV (15:56)
[2024-02-29] MEDS: 0.9 % SODIUM CHLORIDE 1000ML 1,000 ML 999 ML IV ×2 (15:57→17:10)
--- NOTE | 2024-02-29 16:35 | PC.NURSE ---
DR CERON AT BEDSIDE TO REEVALUATE PT
[2024-02-29] MEDS: PROMETHAZINE HCL 25MG/ML 1ML VIAL 25 MG IV (16:45)
[2024-02-29] MEDS: KETOROLAC 30MG/ML VIAL 15 MG IV (16:45)
[2024-02-29 17:30] VITALS: BP 114/73; PULSE 73; RESP 20; TEMP 36.7; O2SAT 98
== END 2024-02-29 17:36 | disposition home or self-care (01) ==
PROVIDERS: Emergency Provider Emergency Medicine; PCP Family Medicine
DX: G43.919 Migraine, unspecified, intractable, without status migrainosus (principal); R05.9 Cough, unspecified; R09.81 Nasal congestion; B34.9 Viral infection, unspecified; E03.9 Hypothyroidism, unspecified
CPT/HCPCS: 87636; 96361; 96365; 96375; 99284; J1200; J1885; J2405; J2550; J3475

== ENCOUNTER 2024-07-30 09:33 | Emergency (ER) | payer BC, SELFPAY ==
[2024-07-30 11:20] VITALS: BP 125/87; PULSE 94; RESP 18; TEMP 36.9; O2SAT 99; BMI 25.2
--- NOTE | 2024-07-30 11:33 | EXP.UTC ---
Discharge Plan Disposition Patient Disposition: Home, Self-Care Condition: Good Prescriptions Prescriptions: No Action esomeprazole magnesium 20 mg capsule,delayed release(DR/EC) 20 mg PO DAILY cyclobenzaprine 10 mg tablet 10 mg PO TID PRN (Reason: muscle spasm) Qty: 60 0RF ketorolac 10 mg tablet 10 mg PO Q8H PRN (Reason: migraine headache) Qty: 90 3RF Ubrelvy 100 mg tablet 100 mg PO ONCE PRN (Reason: migraine headache) Qty: 10 6RF Rx Instructions: as needed for migraine, max amount 2 tabs/day or 4 tabs/week liothyronine 5 mcg tablet PO DAILY Patient Comments: TAKE 1 TABLET BY MOUTH EVERY DAY alprazolam 1 mg tablet 1 mg PO BID PRN (Reason: anxiety) Qty: 60 5RF hydrocodone-acetaminophen 5-325 mg tablet 1 tab PO BID PRN (Reason: pain) Qty: 20 0RF ondansetron 4 mg tablet,disintegrating 4 mg PO Q8H PRN (Reason: nausea and vomiting) Qty: 90 12RF Wegovy 0.25 mg/0.5 mL pen injector 0.25 mg SQ WEEKLY Qty: 2 0RF Rx Instructions: administer weeks 1 through 4 of therapy Ajovy Autoinjector 225 mg/1.5 mL auto-injector 225 mg SQ QMONTH Qty: 1.5 4RF Rx Instructions: Inject monthly as prescribed ibuprofen 800 mg tablet See Rx Instructions .ROUTE .COMPLEX Qty: 60 6RF Dose Instruction: TAKE 1 TABLET BY MOUTH TWICE A DAY NEEDED FOR HEADACHE Rx Instructions: TAKE 1 TABLET BY MOUTH TWICE A DAY NEEDED FOR HEADACHE metformin 500 mg tablet 500 mg PO BID Qty: 180 3RF famotidine [Pepcid] 40 mg tablet 40 mg PO BID Qty: 180 3RF teriparatide [Forteo] 20 mcg/dose (600mcg/2.4mL) pen injector 20 mcg SQ DAILY Qty: 2.4 6RF cetirizine 10 mg tablet See Rx Instructions .ROUTE .COMPLEX Qty: 90 1RF Dose Instruction: TAKE ONE TABLET BY MOUTH EVERY DAY FOR FOR ALLERGY SYMPTOMS Rx Instructions: TAKE ONE TABLET BY MOUTH EVERY DAY FOR FOR ALLERGY SYMPTOMS estradiol 2 mg tablet 2 mg PO DAILY Qty: 90 3RF hydroxyzine HCl 50 mg tablet 50 mg PO BID PRN (Reason: itching) Qty: 60 0RF valacyclovir 1 gram tablet 1,000 mg PO DAILY PRN (Reason: fever blisters) Qty: 30 2RF levothyroxine [Synthroid] 88 mcg tablet See Rx Instructions .ROUTE .COMPLEX Qty: 90 0RF Dose Instruction: TAKE 1 TABLET BY MOUTH EVERY DAY Rx Instructions: TAKE 1 TABLET BY MOUTH EVERY DAY hydrocodone-acetaminophen 7.5-325 mg tablet 1 tab PO BID PRN (Reason: pain) Qty: 20 0RF Xiidra 5 % dropperette 1 drp ophthalmic (eye) BID Qty: 60 2RF Rx Instructions: administer approximately 12 hours apart Prolia 60 mg/mL syringe 60 mg SQ [id number] Qty: 1 6RF bupropion HCl 300 mg tablet extended release 24 hr See Rx Instructions .ROUTE .COMPLEX Qty: 90 0RF Dose Instruction: TAKE 1 TABLET BY MOUTH EVERY DAY FOR DEPRESSION Rx Instructions: TAKE 1 TABLET BY MOUTH EVERY DAY FOR DEPRESSION spironolactone 50 mg tablet See Rx Instructions .ROUTE .COMPLEX Qty: 90 0RF Dose Instruction: TAKE 1 TABLET BY MOUTH EVERY DAY Rx Instructions: TAKE 1 TABLET BY MOUTH EVERY DAY fluticasone propionate 50 mcg/actuation spray,suspension See Rx Instructions .ROUTE .COMPLEX Qty: 16 2RF Dose Instruction: instill 1 SPRAY IN EACH NOSTRIL ONCE DAILY Rx Instructions: instill 1 SPRAY IN EACH NOSTRIL ONCE DAILY albuterol sulfate 90 mcg/actuation HFA aerosol inhaler 2 puff inhalation QID PRN (Reason: shortness of breath or wheezing) Qty: 8.5 12RF prednisone 20 mg tablet 20 mg PO DAILY Qty: 30 1RF furosemide 20 mg tablet See Rx Instructions .ROUTE .COMPLEX Qty: 90 0RF Dose Instruction: 20 MG ORALLY DAILY NEEDED FOR EDEMA Rx Instructions: 20 MG ORALLY DAILY NEEDED FOR EDEMA Referrals Follow up/Referrals: Case Pappas MD [Primary Care Provider] - See instructions Activity Restrictions/Add. Instructions Additional Instructions/Restrictions: *Monitor Temp, Over the counter Motrin or Tylenol as directed/as needed Tylenol every 4 hours and Motrin every 6 hours (as long as your family doctor has told you that you can take it) for fever or pain. and straight to ER if unable to lower temp less than 101.0 after medication given *Warm salt water gargles may help to soothe the throat *Throat Lozenges? *Warm fluids like tea with honey may help to soothe the throat? *Sleep elevated *Humidifier/Vaporizer *If you did not take Penicillin shot or was unable to, start taking antibiotic immediately and make sure that you take it for the FULL length of time although you should start to feel better in 24-48 hours *change toothbrush and toothpaste 24-48 hours after starting to take antibiotics so you do not reinfect yourself Monitor Temp. Tylenol and/or Ibuprofen as needed. ER if fever is no less than 101 despite alternating Tylenol and Ibuprofen * Encourage fluids, water, Gatorade, powerade, pedialyte if infant/toddler/or child *Cold fluids, popsicles and ice cream may feel good on his throat Follow up IMMEDIATELY for new or worsening symptoms or no Noticeable improvement over the next 48-72 hours. 911 for difficulty breathing or swallowing Clinical Impressions Clinical Impression: Strep throat Instructions Patient Instructions: Strep Throat, DI for Strep Throat, Penicillin G Benzathine Injection Print Language Print Language: Persian Discharge ED Provider[place] Britta De Los [place] [facility] [place] General Stated complaint: sore throat, cough, fever Mode of Arrival: Ambulatory Source of Information: Patient Limitations: No Limitations Time Seen by Provider: 07/30/24 11:34 Description of Symptoms (Recalled from Triage Doc. by RN): PATIENT C/O SORE THROAT AND COUGH SINCE YESTERDAY HEENT Symptoms (Recalled from RN notes): Yes Resp Symptoms (Recalled from RN notes): Yes Skin Symptoms (Recalled from RN notes): No MS Symptoms (Recalled from RN notes): No Functional Status (Recalled from RN notes): WNL History of Present Illness Provider Complaint: Patient states that she has been having sore throat and cough since yesterday States that she was seen and tested earlier today at a [facility] and was positive for strep throat States that they was out of the Bicillin la injection and so she was sent here Related Data Home Medications ?Medication ?Instructions ?Recorded ?Confirmed esomeprazole magnesium 20 mg 20 mg PO DAILY 06/24/22 04/23/24 capsule,delayed release liothyronine 5 mcg tablet mcg PO DAILY 04/23/24 04/23/24 Previous Rx's ?Medication ?Instructions ?Recorded ubrogepant 100 mg tablet (Ubrelvy) 100 mg PO ONCE PRN migraine 07/09/21 headache #10 tabs fremanezumab-vfrm 225 mg/1.5 mL 225 mg (1.5 mL) SQ QMONTH Migraine 07/24/22 subcutaneous auto-injector (Ajovy) Headache #1.5 mL cyclobenzaprine 10 mg tablet 10 mg PO TID PRN muscle spasm #60 02/14/23 tabs ketorolac 10 mg tablet 10 mg PO Q8H PRN migraine headache 10/10/23 #90 tabs ibuprofen 800 mg tablet See Rx Instructions .Route 11/18/23 .COMPLEX #60 tabs metformin 500 mg tablet 500 mg PO BID #180 tabs 12/10/23 famotidine 40 mg tablet (Pepcid) 40 mg PO BID #180 tabs 12/11/23 teriparatide 20 mcg/dose (600 20 mcg (0.08 mL) SQ DAILY #2.4 mL 01/02/24 mcg/2.4 mL) subcutaneous pen injector (Forteo) cetirizine 10 mg tablet See Rx Instructions .Route 01/05/24 .COMPLEX #90 tabs estradiol 2 mg tablet 2 mg PO DAILY horomones #90 tabs 03/16/24 hydroxyzine HCl 50 mg tablet 50 mg PO BID PRN itching #60 tabs 03/18/24 valacyclovir 1 gram tablet 1,000 mg PO DAILY PRN fever 04/22/24 blisters #30 tabs alprazolam 1 mg tablet 1 mg PO BID PRN anxiety #60 tabs 04/23/24 hydrocodone 5 mg-acetaminophen 325 1 tab PO BID PRN pain #20 tabs 04/23/24 mg tablet ondansetron 4 mg disintegrating 4 mg PO Q8H PRN nausea and 04/23/24 tablet vomiting #90 tabs semaglutide (weight loss) 0.25 0.25 mg (0.5 mL) SQ WEEKLY #2 mL 04/23/24 mg/0.5 mL subcutaneous pen injector (Wegovy) Synthroid 88 mcg tablet See Rx Instructions .Route 04/26/24 (levothyroxine) .COMPLEX #90 tabs hydrocodone 7.5 mg-acetaminophen 1 tab PO BID PRN pain #20 tabs 04/28/24 325 mg tablet lifitegrast 5 % eye drops in a 1 drp ophthalmic (eye) BID #60 ea 05/12/24 dropperette (Xiidra) denosumab 60 mg/mL subcutaneous 60 mg SQ [id number] #1 mL 05/28/24 syringe (Prolia) albuterol sulfate 90 mcg/actuation 2 puff inhalation QID PRN 05/31/24 aerosol inhaler shortness of breath or wheezing #8.5 grams bupropion HCl 300 mg 24 hr tablet, See Rx Instructions .Route 05/31/24 extended release .COMPLEX #90 tabs fluticasone propionate 50 See Rx Instructions .Route 05/31/24 mcg/actuation nasal .COMPLEX #16 grams spray,suspension prednisone 20 mg tablet 20 mg PO DAILY #30 tabs 05/31/24 spironolactone 50 mg tablet See Rx Instructions .Route 05/31/24 .COMPLEX #90 tabs furosemide 20 mg tablet See Rx Instructions .Route 07/02/24 .COMPLEX #90 tabs Allergies Allergy/AdvReac Type Severity Reaction Status Date / Time codeine (CODEINE) Allergy Unknown VOMITING, Verified 04/23/24 16:22 RASH metoclopramide (From REGLAN) Allergy Unknown SEIZURES Verified 04/23/24 16:22 oxycodone (From PERCOCET) Allergy Unknown NA-NAUSEA/V Verified 04/23/24 16:22 OMITING prochlorperazine Allergy Unknown NA-HALLUCIN Verified 04/23/24 16:22 ATIONS Sulfa (Sulfonamide Allergy Unknown I-RASH Verified 04/23/24 16:22 Antibiotics) (SULFA (SULFONAMIDE ANTIBIOTICS)) alendronate sodium (From AdvReac Intermediate Abdominal Verified 04/23/24 16:22 Fosamax) Pain denosumab (From Prolia) 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 Medical History Dyspareunia Pelvic floor dysfunction in female RLS (restless legs syndrome) Depression Anxiety Sinusitis Diarrhea Surgical History Hx of sinus surgery Hx of appendectomy Hx of tubal ligation Hx of cholecystectomy H/O hysterectomy with oophorectomy Family History Other Alcoholism Cancer Diabetes Hypertension Stroke Thyroid disorder Social History Smoking Status: Never smoker alcohol intake: current alcohol intake frequency: holidays/special occasions only substance use type: denies use current occupational status: employed Travel in the last 8 weeks: None household members: spouse housing: house number of children: 2 caffeine: Yes Have you lived/traveled outside [place] in past 30 days?: No Contact w/someone who lives/traveled outside [place] past 30 days?: No Exposure to someone with infectious disease in past 14 days?: No Do you have a fever (greater than 100.4 F or 38 C)?: Yes Have you tested positive for COVID-19: No Exposed to someone with COVID-19 in past 14 days?: No Do you have a sore throat?: Yes Do you have a cough?: Yes Do you have any weakness?: No Do you have any diarrhea?: No Are you experiencing any unusual bleeding?: No Do you have any muscle aches/pain?: No Do you have any abdominal pain?: No Are you experiencing loss of taste or smell?: No ROS Obtained: Yes All systems reviewed & no additional complaints except as documented and Yes Systems reviewed as appropriate & no additional complaints except as documented Constitutional Constitutional: Reports system reviewed and no additional complaints, except as documented, Reports as per HPI and Reports headache(s) ENT Ears, Nose, Mouth, and Throat: Reports system reviewed and no additional complaints, except as documented, Reports as per HPI, Reports headache(s) and Reports sore throat Cardiovascular Cardiovascular: Reports system reviewed and no additional complaints, except as documented and Reports as per HPI Respiratory Respiratory: Reports system reviewed and no additional complaints, except as documented, Reports as per HPI and Reports cough Gastrointestinal Gastrointestingal: Reports system reviewed and no additional complaints, except as documented and as per HPI Neurologic Neurologic: Reports headache(s) Physical Exam General General appearance: alert and in no apparent distress ENT ENT exam: Present mucous membranes moist Expanded ENT Exam Throat exam: Present tonsillar erythema Respiratory Respiratory exam: Present normal lung sounds bilaterally; Absent respiratory distress or wheezes Cardiovascular Cardiovascular exam: Present regular rate, normal rhythm and normal heart sounds Abdominal Exam Abdominal exam: Present soft and normal bowel sounds; Absent distention or tenderness Neurological Exam Neurological exam: Present alert, oriented X3 and normal gait Medical Decision Making Medical Records Screening: Per USPSTF and CDC recommendations, given the prevalence of disease in our region, it is our hospital?s policy to screen for HIV and viral Hepatitis for all patients aged 18 and over and those with ongoing risk factors. Teo Inquiry Pt receiving controlled substance: No Teo was queried for this patient: No Vital Signs: 07/30/24 11:20 Temperature 98.4 F Temperature Source Oral Pulse Rate [Left Brachial] 94 H Respiratory Rate 18 Blood Pressure [Left Arm] 125/87 Blood Pressure Mean [Left Arm] 99 Blood Pressure Source [Left Arm] Automatic Cuff Blood Pressure Position [Left Arm] Sitting 02 Sat by Pulse Oximetry 99 Oxygen Delivery Method Room Air Orders (Tests/Meds): ED MEDICATIONS Generic Name Dose Route Start Last Admin Trade Name Freq PRN Reason Stop Dose Admin Penicillin G Benzathine 1,200,000 unit 07/30/24 11:31 Penicillin G Benzathine 1,200,000 Units/2ml Syringe IM 07/30/24 11:32 ONCE ONE
[2024-07-30] MEDS: PENICILLIN G BENZATHINE 1,200,000 UNITS/2ML SYRINGE 1200000 UNIT IM (11:35)
[2024-07-30 11:42] VITALS: BP 125/87; PULSE 94; RESP 18; TEMP 36.9; O2SAT 99
== END 2024-07-30 11:44 | disposition home or self-care (01) ==
PROVIDERS: Emergency Provider Nurse Practitioner; PCP Family Medicine
DX: J02.0 Streptococcal pharyngitis (principal)
CPT/HCPCS: 96372; 99213; G0381; J0561